=== PATIENT | male | born 1975 | race Hispanic/Latino ===

== ENCOUNTER 2021-07-21 07:43 | Day surgery (SDC) | payer OTHER ==
--- NOTE | 2021-07-21 08:52 | Anesthesia Consultation ---
Anesthesia Consult and Med Hx Date of service: 07/21/21 - Airway Anesthetic Teeth Evaluation: Poor, Chipped, Edentulous ROM Head & Neck: Adequate Mental/Hyoid Distance: Adequate Mallampati Class: Class I Intubation Access Assessment: Good - Pulmonary Exam CTA: Yes - Cardiac Exam Cardiac Exam: RRR - Pre-Operative Health Status ASA Pre-Surgery Classification: ASA3 Proposed Anesthetic Plan: MAC - Pulmonary Hx Smoking: Yes (RECENTLY STOPPED 06/14/2021) Hx Asthma: No Hx Respiratory Symptoms: No SOB: No COPD: No Home Oxygen Therapy: No Hx Pneumonia: No Hx Sleep Apnea: No - Cardiovascular System Hx Hypertension: Yes Hx Coronary Artery Disease: Yes Hx Heart Attack/AMI: Yes (2 STENTS) Hx Angina: No Hx Percutaneous Transluminal Coronary Angioplasty (PTCA): Yes Hx Cardia Arrhythmia: No Hx Pacemaker: No Hx Internal Defibrillator: No Hx Heart Murmur: No ("I don't remember") Hx Peripheral Vascular Disease: Yes - Central Nervous System Hx Neuromuscular Disorder: No Hx Seizures: No CVA: No Hx Back Pain: No Hx Psychiatric Problems: No - Gastrointestinal Hx Ulcer: No Hx Gastroesophageal Reflux Disease: No - Endocrine Hx Renal Disease: Yes (chronic kidney Disease) Hx End Stage Renal Disease: No Hx Cirrhosis: No Hx Liver Disease: No Hx Insulin Dependent Diabetes: Yes Hx Non-Insulin Dependent Diabetes: Yes Hx Thyroid Disease: No Hx Hypothyroidism: No Hx Hyperthyroidism: No - Hematic Hx Anemia: No Hx Sickle Cell Disease: No - Other Systems Hx Alcohol Use: No Hx Substance Use: Yes (MJ) Hx Cancer: Yes (skin cancer- nose) Hx Obesity: No
[2021-07-21 08:53] LABS: Hematocrit 27.6 % (35.5-45.6); Hemoglobin 9.2 gm/dl (11.8-15.2); Mean Corpuscular HGB Conc 33 % (32-34); Mean Corpuscular Volume 82 fl (84-94); Platelet Count 281 K/mm3 (140-440); Red Blood Count 3.37 M/mm3 (3.65-5.03); Red Cell Distribution Width 16.5 % (13.2-15.2)
--- NOTE | 2021-07-21 08:58 | Anesthesia Day of Surgery ---
Anesthesia Day of Surgery - Day of Surgery Patient Examined: Yes Patient H&P Reviewed: Yes Patient is NPO: Yes
[2021-07-21] MEDS ORDERED: SODIUM CHLORIDE 0.9% 1000 ML 1,000 ML IV SCH (09:00)
[2021-07-21 09:09] LABS: INR 2.38 (0.87-1.13)
[2021-07-21 09:10] LABS: Partial Thromboplastin Time 57.5 Sec. (24.2-36.6)
[2021-07-21 09:15] LABS: BUN/Creatinine Ratio 13; Blood Urea Nitrogen 8 mg/dL (9-20); Calcium 9.6 mg/dL (8.4-10.2); Hemolysis Index 3
== END 2021-07-21 09:45 | disposition home or self-care (01) ==
LOC: CATHLABREC 07:43
PROVIDERS: ATTEND Radiology Diagnostic Radiology
DX: E11.51 Type 2 diabetes mellitus with diabetic peripheral angiopathy without gangrene (principal); I12.9 Hypertensive chronic kidney disease with stage 1 through stage 4 chronic kidney disease, or unspecified chronic kidney disease; E11.22 Type 2 diabetes mellitus with diabetic chronic kidney disease; N18.9 Chronic kidney disease, unspecified; I25.10 Atherosclerotic heart disease of native coronary artery without angina pectoris; I25.2 Old myocardial infarction; Z85.828 Personal history of other malignant neoplasm of skin; F17.210 Nicotine dependence, cigarettes, uncomplicated; Z79.899 Other long term (current) drug therapy; Z95.5 Presence of coronary angioplasty implant and graft; Z98.890 Other specified postprocedural states; Z53.8 Procedure and treatment not carried out for other reasons
CPT/HCPCS: 36415; 80048; 85027; 85610; 85730

== ENCOUNTER 2021-08-18 09:42 | Inpatient (IN) | payer BC ==
[2021-08-18] MEDS ORDERED: SODIUM CHLORIDE 0.9% 1000 ML 1,000 ML IV SCH (10:30)
--- NOTE | 2021-08-18 10:35 | Anesthesia Day of Surgery ---
Anesthesia Day of Surgery - Day of Surgery Patient Examined: Yes Patient H&P Reviewed: Yes Patient is NPO: Yes
--- NOTE | 2021-08-18 10:40 | Anesthesia Consultation ---
Anesthesia Consult and Med Hx Date of service: 08/18/21 - Airway Anesthetic Teeth Evaluation: Poor, Chipped ROM Head & Neck: Adequate Mental/Hyoid Distance: Adequate Mallampati Class: Class II Intubation Access Assessment: Good - Pre-Operative Health Status ASA Pre-Surgery Classification: ASA3 Proposed Anesthetic Plan: General, MAC - Pulmonary Hx Smoking: Yes (Quit) Hx Respiratory Symptoms: No Hx Sleep Apnea: No - Cardiovascular System Hx Hypertension: Yes Hx Coronary Artery Disease: Yes (Stent) Hx Heart Attack/AMI: Yes Hx Peripheral Vascular Disease: Yes - Gastrointestinal Hx Gastroesophageal Reflux Disease: Yes (Occasional) - Endocrine Hx Liver Disease: Yes (Hep C-treated) Hx Insulin Dependent Diabetes: Yes Hx Non-Insulin Dependent Diabetes: Yes - Other Systems Hx Obesity: No
[2021-08-18 11:39] LABS: Hemoglobin 9.4 gm/dl (11.8-15.2); Mean Corpuscular HGB Conc 31 % (32-34); Mean Corpuscular Volume 77 fl (84-94); Platelet Count 281 K/mm3 (140-440); Red Blood Count 4.03 M/mm3 (3.65-5.03); Red Cell Distribution Width 17.8 % (13.2-15.2)
[2021-08-18 11:50] LABS: Partial Thromboplastin Time 31.4 Sec. (24.2-36.6)
[2021-08-18 11:53] LABS: INR 0.98 (0.87-1.13)
[2021-08-18 11:54] LABS: Blood Urea Nitrogen 4 mg/dL (9-20); Calcium 9.4 mg/dL (8.4-10.2); Hemolysis Index 10
[2021-08-18 11:55] LABS: BUN/Creatinine Ratio 7
[2021-08-18] MEDS ORDERED: LIDOCAINE MPF (2%) 20 MG/1 ML VIAL 5 ML ONE (12:03)
[2021-08-18] MEDS ORDERED: fentaNYL 100 MCG/2 ML INJ ONE (12:04)
[2021-08-18] MEDS ORDERED: MIDAZOLAM 2 MG/2 ML INJ ONE (12:04)
[2021-08-18] MEDS ORDERED: KETAMINE/STERILE WATER 50 MG/ML SYRINGE ONE (12:04)
[2021-08-18] MEDS ORDERED: ePHEDrine SULFATE 50 MG/1 ML INJ ONE ×2 (12:06)
[2021-08-18] MEDS ORDERED: HEPARIN 10,000 UNITS/10 ML VIAL ONE (12:49)
--- NOTE | 2021-08-18 12:49 | Consultation ---
History of Present Illness - Reason for Consult Consult date: 08/18/21 LLE gangrene Requesting physician: JADON ORDAZ - History of Present Illness 46-year-old male with multiple medical issues with H&P included on chart who had left lower extremity acute limb ischemia after being evaluated by [place] and was then brought to [facility] where he underwent thrombolysis, angioplasty, and revascularization of the left lower extremity and had fasciotomies performed. Unfortunately despite aggressive revascularization, patient had rethrombosis of his vessels and given his underlying issues, request below-knee amputation. Patient will require revascularization and subsequently below-knee amputation. Past History Past Medical History: acute AR, CAD, hepatitis, hypertension, hyperlipidemia, other (Hypercoagulable state) Past Surgical History: Other (Multiple endovascular procedures for previous hypercoagulable state) Social history: , smoking Family history: no significant family history Medications and Allergies Allergies Allergy/AdvReac Type Severity Reaction Status Date / Time No Known Allergies Allergy Unverified 08/18/21 10:12 Home Medications Medication Instructions Recorded Confirmed Last Taken Type ALPRAZolam [Xanax TAB] 1 mg PO TID PRN 08/18/21 08/18/21 08/17/21 History 3 tabs AtorvaSTATin [Lipitor] 20 mg PO QHS 08/18/21 08/18/21 Unknown History Gabapentin 300 mg PO DAILY 08/18/21 08/18/21 08/17/21 History 1 TAB Oxycodone HCl/Acetaminophen 1 each PO TID 08/18/21 08/18/21 Unknown History [Oxycodone-Acetaminophen 10-325] Warfarin [Coumadin] 2.5 mg PO 4XW 08/18/21 08/18/21 08/10/21 History 3 tabs Warfarin [Coumadin] 5 mg PO 3XW 08/18/21 08/18/21 08/10/21 History 3 tabs cilostazoL [Pletal] 100 mg PO BID 08/18/21 08/18/21 Unknown History lisinopriL [Lisinopril] 10 mg PO DAILY 08/18/21 08/18/21 08/17/21 History 10 mg Active Meds: Active Medications Sodium Chloride (Nacl 0.9% 1000 Ml) 1,000 mls @ 25 mls/hr IV DIRECT KRISTIE Review of Systems All systems: negative (see HPI) Exam - Constitutional Vitals: Temp Pulse Resp BP Pulse Ox 98.4 F 73 16 114/63 98 08/18/21 11:26 08/18/21 11:26 08/18/21 11:26 08/18/21 11:26 08/18/21 11:26 General appearance: Present: severe distress (Left lower extremity pain) - EENT Eyes: Present: EOM intact ENT: hearing intact - Neck Neck: Present: supple - Respiratory Respiratory effort: normal - Extremities Extremities: abnormal (Gangrene of the mid and distal anterolateral exposed fasciotomy and gangrene of the left first digit with cellulitic changes of the foot) Peripheral Pulses: abnormal (Nonpalpable left pedal pulses) - Abdominal General gastrointestinal: Present: soft - Psychiatric Psychiatric: appropriate mood/affect, cooperative Results - Labs CBC & Chem 7: 08/18/21 11:17 08/18/21 10:17 Labs: Abnormal lab results 08/18/21 08/18/21 Range/Units 10:17 11:17 Hgb 9.4 L (11.8-15.2) gm/dl Hct 31.0 L (35.5-45.6) % MCV 77 L (84-94) fl MCH 23 L (28-32) pg MCHC 31 L (32-34) % RDW 17.8 H (13.2-15.2) % Sodium 131 L (137-145) mmol/L Chloride 93.3 L (98-107) mmol/L BUN 4 L (9-20) mg/dL Creatinine 0.6 L (0.8-1.3) mg/dL Glucose 148 H (75-100) mg/dL Assessment and Plan 46-year-old male with critical limb ischemia and peripheral vascular disease of the left lower extremity with gangrene. Patient has attempted limb salvage with endovascular revascularization, thrombolysis, and fasciotomies, but still fails to improve. He now has an infection of his left first digit at the area of gangrene, and has eschar of the left mid and distal calf musculature. The left lower extremity is nonsalvageable and requires amputation. Patient wants left lower extremity below-knee amputation. Patient had endovascular revascularization today in order to optimize flow for below-knee amputation. Risks, benefits, alternatives discussed, patient agrees with left lower extremity below-knee amputation. Started on heparin drip, Plavix, on cilostazol, with Protonix for GI prophylaxis. Hold heparin on-call to the OR tomorrow. Patient has history of significant anxiety and has been on chronic Xanax for many years.
[2021-08-18] MEDS ORDERED: LIDOCAINE (2%) 20 MG/1 ML VIAL 20 ML MDV INFILTRATI ONE (12:50)
[2021-08-18] MEDS ORDERED: HEPARIN IR ONE (13:00)
[2021-08-18] MEDS ORDERED: SODIUM CHLORIDE 0.9% IR ONE (13:00)
[2021-08-18] MEDS ORDERED: SODIUM CHLORIDE 0.9% 1000 ML 1,000 ML ONE (13:02)
[2021-08-18] MEDS ORDERED: ceFAZolin/Water 2 GM/20 ML 2 GM/20 ML SYRINGE IV ONE (13:28)
[2021-08-18] MEDS ORDERED: NALOXONE 0.4 MG/1 ML INJ IV PRN (14:54)
[2021-08-18] MEDS ORDERED: ALBUTEROL 2.5 MG/3 ML NEBU IH PRN (14:54)
[2021-08-18] MEDS ORDERED: HEPARIN 10,000 UNITS/10 ML VIAL IV PRN (14:54)
[2021-08-18] MEDS ORDERED: ONDANSETRON 4 MG/2 ML INJ IV PRN (14:54)
[2021-08-18] MEDS ORDERED: ACETAMINOPHEN 325 MG TAB PO PRN (14:54)
--- NOTE | 2021-08-18 14:59 | Short Stay Summary ---
Short Stay Documentation Date of service: 08/18/21 Narrative H&P: 46-year-old male with multiple medical issues with H&P included on chart who had left lower extremity acute limb ischemia after being evaluated by [place] and was then brought to [facility] where he underwent thrombolysis, angioplasty, and revascularization of the left lower extremity and had fasciotomies performed. Unfortunately despite aggressive revascularization, patient had rethrombosis of his vessels and given his underlying issues, request below-knee amputation. Patient will require revascularization and subsequently below-knee amputation. - History Principal diagnosis: Peripheral vascular disease with gangrene of the left lower extremity H&P: obtained from office - Allergies and Medications Current Medications: Allergies No Known Allergies Allergy (Unverified 08/18/21 10:12) Home Medications Medication Instructions Recorded Confirmed Last Taken Type ALPRAZolam [Xanax TAB] 1 mg PO TID PRN 08/18/21 08/18/21 08/17/21 History 3 tabs AtorvaSTATin [Lipitor] 20 mg PO QHS 08/18/21 08/18/21 Unknown History Gabapentin 300 mg PO DAILY 08/18/21 08/18/21 08/17/21 History 1 TAB Oxycodone HCl/Acetaminophen 1 each PO TID 08/18/21 08/18/21 Unknown History [Oxycodone-Acetaminophen 10-325] Warfarin [Coumadin] 2.5 mg PO 4XW 08/18/21 08/18/21 08/10/21 History 3 tabs Warfarin [Coumadin] 5 mg PO 3XW 08/18/21 08/18/21 08/10/21 History 3 tabs cilostazoL [Pletal] 100 mg PO BID 08/18/21 08/18/21 Unknown History lisinopriL [Lisinopril] 10 mg PO DAILY 08/18/21 08/18/21 08/17/21 History 10 mg Active Medications Sodium Chloride (Nacl 0.9% 1000 Ml) 1,000 mls @ 25 mls/hr IV DIRECT KRISTIE - Physical exam General appearance: severe distress (Left lower extremity severe pain) Lungs: Normal air movement Gastrointestinal: normal Extremities: abnormal (Large amounts of gangrene of the distal left anterior lateral compartment and left first digit amputation site with cellulitis of the foot) - Hospital course Hospital course: Patient will require admission to the hospital. Dr. Edmonds, hospitalist notified who will be admitting the patient. - Disposition Condition at discharge: Stable Disposition: 09 ADMITTED INPATIENT - Discharge Diagnoses (1) Gangrene of left lower extremity concurrent with and due to atherosclerosis of bypass graft Status: Acute (2) Critical limb ischemia of left lower extremity with gangrene Status: Acute Short Stay Discharge Plan Follow up with: SMITH RANGEL MD [Primary Care Provider] - 7 Days
--- NOTE | 2021-08-18 14:59 | Operative Report ---
Operative Report Operative Report: EXAM: 1. Ultrasound-guided access of the right common femoral artery. 2. Angiography of the right lower extremity (clinical change). 3. Selection of the abdominal aorta with angiography (clinical change) . 4. Selection of the left external iliac artery, common femoral artery, superficial femoral artery, and popliteal artery of the left lower extremity with angiography (clinical change) 5. Angioplasty of the left proximal and mid superficial femoral artery with a 5 mm x 120 mm angioplasty balloon, 5 mm x 150 mm iNPACT balloon and 6 mm x 120 mm angioplasty balloon 6. Closure of the right common femoral artery with a 6 [place] ProGlide DATE: 08/18/2021 CALL CENTER PROFESSIONAL: REYNA PEÑALOZA MD INDICATION: Critical limb ischemia of the left lower extremity with left foot infection, left MEDICATIONS: Please see nursing report for full details. ANESTHESIA: MAC DEVICES: 5 mm x 120 mm angioplasty balloon 5 mm x 150 mm iNPACT balloon 6 mm x 120 mm angioplasty balloon CONTRAST: Please see catheter report for full details PROCEDURE: The risks, benefits, and alternatives were discussed with the patient. Written informed consent was obtained. Preprocedurally, patient has decided upon below-knee amputation. Procedures performed to optimize blood flow for below-knee amputation. Ultrasound was used to evaluate the right common femoral artery which was patent. Under direct ultrasound guidance, the right common femoral artery was accessed with a 21-gauge micropuncture needle. 0.018 inch wire was passed into the aorta. Needle was exchanged for transitional dilator. Wire was exchanged for a 0.035 inch wire. Transitional dilator was exchanged for 5 [place] sheath. Digital subtraction angiography was performed demonstrating an appropriate puncture, above the bifurcation and below the inferior epigastric artery. Digital subtraction angiography demonstrated patency of the right external iliac artery, right common femoral artery, right proximal superficial femoral artery, and right profunda femoral artery. The abdominal aorta was selected and digital subtraction angiography was perfo rmed. The left external iliac artery, common femoral artery, superficial femoral artery and popliteal artery were selected and digital subtraction angiography was performed. Digital subtraction angiography demonstrated patency of the infrarenal abdominal aorta, bilateral common iliac arteries, bilateral external iliac arteries, and bilateral internal iliac arteries. The left common femoral artery was patent. The left profunda femoral artery was patent. The left proximal to mid superficial femoral artery had a diffuse 30 to 40% stenosis with a focal 60% stenosis in the mid superficial femoral artery. The distal superficial femoral artery was patent. The popliteal artery was patent with some's mild ectasia of the [id number] popliteal artery. There is severe infrapopliteal arterial disease. The tibioperoneal trunk was patent. The proximal to mid posterior tibial artery is patent. The proximal peroneal artery has diffuse 50% stenosis. The first 5 cm of the anterior tibial artery are occluded and there is reconstitution of intermittent portions of the proximal and midportion of the vessel. There is minimal flow to the foot with minimal reconstitution of the lateral plantar and medial plantar artery After reviewing the diagnostic angiogram, I decided the patient required intervention to optimize flow for a below-knee amputation. Patient was heparinized. Sheath was exchanged for 6 [place] 45 cm [facility] destination positioned in the left common femoral artery. Angioplasty was performed of the left proximal and mid superficial femoral artery with a 5 mm x 120 mm angioplasty balloon and then with a 5 mm x 150 mm iNPACT balloon. Digital subtraction angiography demonstrated 2 areas of dissection which were partially flow-limiting. 6 mm x 120 mm angioplasty b alloon was used at low pressure to reapposed the flaps in the proximal and midportion of the superficial femoral artery for 5 minutes at each inflation. Digital subtraction angiography was performed demonstrating less than 10% residual stenosis of the proximal and mid superficial femoral artery and complete resolution of the dissection. The rest of the runoff was unchanged. All wires, catheters, and sheaths were retracted to the right external iliac artery and the site was closed with a prostyle device. Pressure dressing applied. Patient tolerated the procedure well. No immediate postprocedural complications. FINDINGS: Please see procedure note above IMPRESSION: Successful angioplasty of the left superficial femoral artery.
[2021-08-18] MEDS ORDERED: CLOPIDOGREL 300 MG TAB PO ONE (15:08)
[2021-08-18] MEDS ORDERED: LORazepam 2 MG/ML VIAL ONE (15:30)
[2021-08-18] MEDS ORDERED: LORazepam 2 MG/ML VIAL IV NR (15:38)
--- NOTE | 2021-08-18 16:21 | Event Note ---
Date: 08/18/21 Patient had angiography today with endovascular revascularization of the left lower extremity. Tomorrow he will end up having a below-knee amputation. Afterwards, he will need to be sent to subacute rehab for rehabilitation for his left below-knee amputation and be converted back to warfarin from heparin.
--- NOTE | 2021-08-18 16:22 | XRay Report ---
CHEST 1 VIEW 08/18/2021 3:21 PM INDICATION / CLINICAL INFORMATION: preop. History of hypertension, diabetes and gangrene. COMPARISON: 2 views of the chest from 06/20/2021. FINDINGS: SUPPORT DEVICES: None. HEART / MEDIASTINUM: No significant abnormality. LUNGS / PLEURA: No significant pulmonary abnormality. No significant pleural effusion. No pneumothora x. ADDITIONAL FINDINGS: No significant additional findings. IMPRESSION: 1. No acute abnormality of the chest. Signer Name: Mauro Lai MD Signed: 08/18/2021 4:17 PM Workstation Name: [id number]
[2021-08-18] MEDS: HEPARIN/ 0.45% NACL DRIP 25,000 UNIT/500 ML BAG IV SCH (16:35)
--- NOTE | 2021-08-18 16:58 | Post Anesthesia Evaluation ---
- Post Anesthesia Evaluation Patient Participated: Yes Airway Patent: Yes Stable Respiratory Function: Yes Nausea/Vomiting: No Temp > 96.8F: Yes Pain Manageable: Yes Adequeate Hydration: Yes Anesthesia Complications: No Block Receding Appropriately: Not Applicable Patient on Ventilator: No
[2021-08-18 21:01] LABS: Hematocrit 31.8 % (35.5-45.6); Hemoglobin 9.6 gm/dl (11.8-15.2)
[2021-08-18 21:06] LABS: Blood Urea Nitrogen 4 mg/dL (9-20); Calcium 8.9 mg/dL (8.4-10.2); Hemolysis Index 0
[2021-08-18 21:12] LABS: INR 1.04 (0.87-1.13)
[2021-08-18 21:13] LABS: BUN/Creatinine Ratio 6
[2021-08-18] MEDS: CILOSTAZOL 100 MG TAB PO SCH ×2 (22:17→22:52)
[2021-08-18] MEDS: DOCUSATE SODIUM 100 MG CAP PO SCH ×2 (22:17→22:53)
[2021-08-18] MEDS: ALPRAZolam 1 MG TAB PO PRN (22:52)
[2021-08-18] MEDS: HYDROcodone/ACETAMINOPHEN 5-325 MG TAB PO PRN (22:53)
--- NOTE | 2021-08-19 00:24 | Consultation ---
History of Present Illness - Reason for Consult Consult date: 08/18/21 Medical management Requesting physician: REYNA PEÑALOZA - History of Present Illness 46-year-old male with multiple medical issues with H&P included on chart who had left lower extremity acute limb ischemia after being evaluated by [facility] and was then brought to [facility] where he underwent thrombolysis, angioplasty, and revascularization of the left lower extremity and had fasciotomies performed. Unfortunately despite aggressive revascularization, patient had rethrombosis of his vessels and given his underlying issues, request below-knee amputation. Patient will require revascularization and subsequently below-knee amputation. Past History Past Medical History: acute [place], CAD, hepatitis, hypertension, hyperlipidemia, other (Hypercoagulable state) Past Surgical History: Other (Multiple endovascular procedures for previous hypercoagulable state) Social history: , smoking Family history: no significant family history Review of Systems All system Constitutional no weight loss or weight gain no fever or chills HEENT no sore throat no post nasal drip no diplopia Neck no neck stiffness no lymph gland enlargement Chest and lungs no shortness of breath cough or wheezing CVS no chest pain no diaphoresis no palpitations GI no nausea no vomiting no diarrhea Genitourinary system no dysuria no flank pain Musculoskeletal system left lower extremity acute ischemia [employer] no syncope no seizures Skin no rash no itching Psychiatric no depression no homicidal or suicidal tendencies Hematologic no lymphedema or bruising Endocrine no polydipsia no polyuria no cold intolerance no heat intolerance Past History Past Medical History: acute [place], CAD, hepatitis, hypertension, hyperlipidemia, other (Hypercoagulable state) Past Surgical History: Other (Multiple endovascular procedures for previous hypercoagulable state) Social history: , smoking Family history: no significant family history Medications and Allergies Allergies Allergy/AdvReac Type Severity Reaction Status Date / Time No Known Allergies Allergy Unverified 08/18/21 10:12 Home Medications Medication Instructions Recorded Confirmed Last Taken Type ALPRAZolam [Xanax TAB] 1 mg PO TID PRN 08/18/21 08/18/21 08/17/21 History 3 tabs AtorvaSTATin [Lipitor] 20 mg PO QHS 08/18/21 08/18/21 Unknown History Gabapentin 300 mg PO DAILY 08/18/21 08/18/21 08/17/21 History 1 TAB Oxycodone HCl/Acetaminophen 1 each PO TID 08/18/21 08/18/21 Unknown History [Oxycodone-Acetaminophen 10-325] Warfarin [Coumadin] 2.5 mg PO 4XW 08/18/21 08/18/21 08/10/21 History 3 tabs Warfarin [Coumadin] 5 mg PO 3XW 08/18/21 08/18/21 08/10/21 History 3 tabs cilostazoL [Pletal] 100 mg PO BID 08/18/21 08/18/21 Unknown History lisinopriL [Lisinopril] 10 mg PO DAILY 08/18/21 08/18/21 08/17/21 History 10 mg Active Meds: Active Medications Acetaminophen (Acetaminophen 325 Mg Tab) 650 mg PO Q4H PRN PRN Reason: Pain MILD(1-3)/Fever >100.5/RICK Hydrocodone Bitart/Acetaminophen (Hydrocodone/Acetaminophen 5-325 Mg Tab) 1 each PO Q6H PRN PRN Reason: Pain, Mild (1-3) Last Admin: 08/18/21 22:53 Dose: 1 each Albuterol (Albuterol 2.5 Mg/3 Ml Nebu) 2.5 mg IH Q4HRT PRN PRN Reason: Shortness Of Breath Alprazolam (Alprazolam 1 Mg Tab) 1 mg PO TID PRN PRN Reason: Anxiety Last Admin: 08/18/21 22:52 Dose: 1 mg Atorvastatin Calcium (Atorvastatin 20 Mg Tab) 20 mg PO QHS [facility] Last Admin: 08/18/21 22:52 Dose: 20 mg Bisacodyl (Bisacodyl 10 Mg Rect Supp) 10 mg [place] QDAY PRN PRN Reason: Constipation unrelieved by MOM Cilostazol (Cilostazol 100 Mg Tab) 100 mg PO BID [facility] Last Admin: 08/18/21 22:52 Dose: 100 mg Clopidogrel Bisulfate (Clopidogrel 75 Mg Tab) 75 mg PO QDAY [facility] Docusate Sodium (Docusate Sodium 100 Mg Cap) 100 mg PO BID [facility] Last Admin: 08/18/21 22:53 Dose: 100 mg Gabapentin (Gabapentin 300 Mg Cap) 300 mg PO DAILY [facility] Heparin Sodium (Porcine) (Heparin 10,000 Units/10 Ml Vial) 3,200 unit 40 unit/kg (3200 unit) IV Q6H PRN PRN Reason: Anti-Xa Assay<0.1 units/ml Hydromorphone HCl (Hydromorphone 1 Mg/1 Ml Inj) 1 mg IV Q2H PRN PRN Reason: Pain , Severe (7-10) Sodium Chloride (Nacl 0.9% 1000 Ml) 1,000 mls @ 100 mls/hr IV DIRECT KRISTIE Heparin Sodium/Sodium Chloride (Heparin/ 0.45% Nacl-25,000 Unit/500 Ml) 25,000 unit in 500 mls @ 20 mls/hr IV TITRATE KRISTIE; Protocol Last Admin: 08/18/21 16:35 Dose: 1,000 units/hr, 20 mls/hr Lisinopril (Lisinopril 10 Mg Tab) 10 mg PO DAILY KRISTIE Naloxone HCl (Naloxone 0.4 Mg/1 Ml Inj) 0.1 mg IV Q2MIN PRN PRN Reason: Res Rate </= 8 or 02 SAT < 92% Ondansetron HCl (Ondansetron 4 Mg/2 Ml Inj) 4 mg IV Q8H PRN PRN Reason: Nausea And Vomiting Oxycodone/Acetaminophen (Oxycodone /Acetaminophen 5-325mg Tab) 2 tab PO Q4H PRN PRN Reason: Pain, Moderate (4-6) Pantoprazole Sodium (Pantoprazole 40 Mg Tab) 40 mg PO QDAC KRISTIE Review of Systems All systems: negative Exam - Constitutional Vitals: Temp Pulse Resp BP Pulse Ox 99.7 F H 103 H 18 177/92 97 08/18/21 20:10 08/18/21 20:10 08/18/21 20:10 08/18/21 20:10 08/18/21 20:10 General appearance: Present: no acute distress, well-nourished - EENT Eyes: Present: PERRL ENT: hearing intact, clear oral mucosa - Neck Neck: Present: supple, normal ROM - Respiratory Respiratory effort: normal Respiratory: bilateral: CTA - Cardiovascular Heart Sounds: Present: S1 & S2. Absent: rub, click - Extremities Extremities: No edema, abnormal (Left lower extremity ischemic changes in the left foot) Extremity abnormal: black, other (Same as above) Peripheral Pulses: within normal limits - Abdominal General gastrointestinal: Present: soft, non-tender, non-distended, normal bowel sounds Male genitourinary: Present: normal - Integumentary Integumentary: Present: clear, warm, dry - Musculoskeletal Musculoskeletal: gait normal, strength equal bilaterally - Psychiatric Psychiatric: appropriate mood/affect, intact judgment & insight - Neurologic Neurologic: CNII-XII intact, moves all extremities Results - Labs CBC & Chem 7: 08/19/21 04:22 08/19/21 04:22 Labs: Abnormal lab results 08/18/21 08/18/21 08/18/21 Range/Units 10:17 11:17 19:48 Hgb 9.4 L 9.6 L (11.8-15.2) gm/dl Hct 31.0 L 31.8 L (35.5-45.6) % MCV 77 L (84-94) fl MCH 23 L (28-32) pg MCHC 31 L (32-34) % RDW 17.8 H (13.2-15.2) % Sodium 131 L (137-145) mmol/L Chloride 93.3 L (98-107) mmol/L BUN 4 L (9-20) mg/dL Creatinine 0.6 L (0.8-1.3) mg/dL Glucose 148 H (75-100) mg/dL 08/18/21 Range/Units 19:48 Hgb (11.8-15.2) gm/dl Hct (35.5-45.6) % MCV (84-94) fl MCH (28-32) pg MCHC (32-34) % RDW (13.2-15.2) % Sodium (137-145) mmol/L Chloride (98-107) mmol/L BUN 4 L (9-20) mg/dL Creatinine 0.7 L (0.8-1.3) mg/dL Glucose 111 H (75-100) mg/dL Short CBC 08/18/21 08/18/21 Range/Units 11:17 19:48 WBC 7.5 (4.5-11.0) K/mm3 Hgb 9.4 L 9.6 L (11.8-15.2) gm/dl Hct 31.0 L 31.8 L (35.5-45.6) % Plt Count 281 232 (140-440) K/mm3 BMP 08/18/21 08/18/21 10:17 19:48 Sodium 131 L 137 Potassium 3.8 3.7 Chloride 93.3 L 99.0 Carbon Dioxide 25 25 BUN 4 L 4 L Creatinine 0.6 L 0.7 L Glucose 148 H 111 H Calcium 9.4 8.9 Assessment and Plan - Patient Problems (1) Critical limb ischemia of left lower extremity with gangrene Current Visit: Yes Status: Acute Plan to address problem: Defer to vascular surgery/interventional radiology (2) PAD (peripheral artery disease) Current Visit: Yes Status: Chronic Plan to address problem: Continue cilostazol (3) HLD (hyperlipidemia) Current Visit: Yes Status: Chronic Qualifiers: Hyperlipidemia type: mixed hyperlipidemia Qualified Code(s): E78.2 - Mixed hyperlipidemia Plan to address problem: Continue statins (4) Anemia Current Visit: Yes Status: Chronic Qualifiers: Anemia type: unspecified type Qualified Code(s): D64.9 - Anemia, unspecified Plan to address problem: Anemia work-up (5) Anticoagulation goal of INR 2 to 3 Current Visit: Yes Status: Acute Plan to address problem: Anticoagulation adequate (6) Peripheral neuropathy Current Visit: Yes Status: Chronic Plan to address problem: Continue gabapentin (7) Generalized anxiety disorder Current Visit: Yes Status: Acute Plan to address problem: Continue Xanax as needed (8) DVT prophylaxis Current Visit: Yes Status: Acute Plan to address problem: On anticoagulation GI prophylaxis (9) Advance care planning Current Visit: Yes Status: Acute Plan to address problem: Disease education conducted, care plan discussed, diagnosis discussed, prognosis discussed. Patient is full code. Patient acknowledges understanding and agreement with care plan. +30 minutes.
[2021-08-19] MEDS: HYDROmorphone 1 MG/1 ML INJ IV PRN ×6 (04:25→18:37)
[2021-08-19] MEDS ORDERED: HEPARIN 10,000 UNITS/10 ML VIAL IV ONE (04:43)
[2021-08-19 06:16] LABS: Basophils % (Auto) 0.5 % (0.0-1.8); Eosinophils # (Auto) 0.1 K/mm3 (0.0-0.4); Eosinophils % (Auto) 0.8 % (0.0-4.3); Hematocrit 30.4 % (35.5-45.6); Hemoglobin 9.6 gm/dl (11.8-15.2); Lymphocytes # (Auto) 1.8 K/mm3 (1.2-5.4); Mean Corpuscular HGB Conc 31 % (32-34); Mean Corpuscular Volume 77 fl (84-94); Monocytes # (Auto) 0.7 K/mm3 (0.0-0.8); Monocytes % (Auto) 9.9 % (0.0-7.3); Platelet Count 274 K/mm3 (140-440); Red Blood Count 3.95 M/mm3 (3.65-5.03); Red Cell Distribution Width 18.2 % (13.2-15.2)
[2021-08-19 06:31] LABS: Blood Urea Nitrogen 5 mg/dL (9-20); Hemolysis Index 1
[2021-08-19 06:35] LABS: BUN/Creatinine Ratio 8
[2021-08-19] MEDS: PANTOPRAZOLE 40 MG TAB PO SCH (08:05)
--- NOTE | 2021-08-19 08:50 | Electrocardiograph Report ---
[facility] Test Date: 2021-08-18 Test Time: 15:37:11 Pat Name: ORLIN MATAMOROS Department: Room: A452 Gender: M Spring Coiler: HERBERT : 1975 Requested By: REYNA PEÑALOZA Order Number: [id number] Reading MD: Jamie Richardson Measurements Intervals [place] Rate: 91 P: 63 NV: 139 QRS: -16 QRSD: 102 T: 44 QT: 385 QTc: 474 Interpretive Statements Sinus rhythm nonspecific st-t No previous ECG available for comparison Electronically Signed On 08-19-2021 8:50:14 EST by Jamie Richardson
--- NOTE | 2021-08-19 09:58 | Progress Note ---
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 Current Visit: Yes Status: Acute Defer to vascular surgery/interventional radiology -- PAD (peripheral artery disease) Current Visit: Yes Status: Chronic Continue cilostazol -- HLD (hyperlipidemia) Current Visit: Yes Status: Chronic Continue statins -- Anemia Current Visit: Yes Status: Chronic Anemia work-up -- Anticoagulation goal of INR 2 to 3 Current Visit: Yes Status: Acute Anticoagulation adequate -- Peripheral neuropathy Current Visit: Yes Status: Chronic Continue gabapentin --Generalized anxiety disorder Current Visit: Yes Status: Acute Continue Xanax as needed --DVT prophylaxis Current Visit: Yes Status: Acute On anticoagulation GI prophylaxis --Advance care planning Current Visit: Yes Status: Acute Disease education conducted, care plan discussed, diagnosis discussed, prognosis discussed. Patient is full code. Patient acknowledges understanding and agreement with care plan. +30 minutes. We will closely monitor patient and adjust management as needed Plan of care reviewed with the patient and his nurse History Interval history: I have seen and examined the patient at the bedside Patient's chart and medications reviewed Patient complains of some pain at the surgical site Vital signs noted Hospitalist Physical - Constitutional Vitals: Temp Pulse Resp BP Pulse Ox 100.6 F H 105 H 18 121/68 97 08/19/21 08:46 08/19/21 08:46 08/19/21 08:46 08/19/21 08:46 08/19/21 08:46 General appearance: Present: no acute distress, well-nourished - EENT Eyes: Present: PERRL, EOM intact - Neck Neck: Present: supple, normal ROM - Respiratory Respiratory effort: normal Respiratory: bilateral: diminished, negative: rales, rhonchi, wheezing - Cardiovascular Rhythm: regular Heart Sounds: Present: S1 & S2 - Extremities Extremities: abnormal (Surgical dressing in place) - Abdominal General gastrointestinal: soft, non-tender, non-distended, normal bowel sounds - Integumentary Integumentary: Present: clear, warm - Psychiatric Psychiatric: appropriate mood/affect, cooperative - Neurologic Neurologic: moves all extremities Results - Labs CBC & Chem 7: 08/19/21 04:22 08/19/21 04:22 Labs: Laboratory Last Values WBC 7.3 K/mm3 (4.5-11.0) 08/19/21 04:22 RBC 3.95 M/mm3 (3.65-5.03) 08/19/21 04:22 Hgb 9.6 gm/dl (11.8-15.2) L 08/19/21 04:22 Hct 30.4 % (35.5-45.6) L 08/19/21 04:22 MCV 77 fl (84-94) L 08/19/21 04:22 MCH 24 pg (28-32) L 08/19/21 04:22 MCHC 31 % (32-34) L 08/19/21 04:22 RDW 18.2 % (13.2-15.2) H 08/19/21 04:22 Plt Count 274 K/mm3 (140-440) 08/19/21 04:22 Lymph % (Auto) 25.0 % (13.4-35.0) 08/19/21 04:22 [place] % (Auto) 9.9 % (0.0-7.3) H 08/19/21 04:22 Eos % (Auto) 0.8 % (0.0-4.3) 08/19/21 04:22 Baso % (Auto) 0.5 % (0.0-1.8) 08/19/21 04:22 Lymph # (Auto) 1.8 K/mm3 (1.2-5.4) 08/19/21 04:22 [place] # (Auto) 0.7 K/mm3 (0.0-0.8) 08/19/21 04:22 Eos # (Auto) 0.1 K/mm3 (0.0-0.4) 08/19/21 04:22 Baso # (Auto) 0.0 K/mm3 (0.0-0.1) 08/19/21 04:22 Seg Neutrophils % 63.8 % (40.0-70.0) 08/19/21 04:22 Seg Neutrophils # 4.6 K/mm3 (1.8-7.7) 08/19/21 04:22 PT 14.7 Sec. (12.2-14.9) 08/18/21 19:48 INR 1.04 (0.87-1.13) 08/18/21 19:48 APTT 31.4 Sec. (24.2-36.6) 08/18/21 10:17 Heparin Anti-Xa Level < 0.10 U.I./ml (0.3-0.7) L 08/19/21 00:02 Sodium 137 mmol/L (137-145) 08/19/21 04:22 Potassium 4.1 mmol/L (3.6-5.0) 08/19/21 04:22 Chloride 98.0 mmol/L (98-107) 08/19/21 04:22 Carbon Dioxide 26 mmol/L (22-30) 08/19/21 04:22 Anion Gap 17 mmol/L 08/19/21 04:22 BUN 5 mg/dL (9-20) L 08/19/21 04:22 Creatinine 0.6 mg/dL (0.8-1.3) L 08/19/21 04:22 Estimated GFR > 60 ml/min 08/19/21 04:22 BUN/Creatinine Ratio 8 % 08/19/21 04:22 Glucose 146 mg/dL (75-100) H 08/19/21 04:22 Calcium 9.0 mg/dL (8.4-10.2) 08/19/21 04:22 Microbiology: Microbiology 08/18/21 19:48 Peripheral/Venous Blood Culture - Preliminary Culture in Progress 08/18/21 19:48 Peripheral/Venous Blood Culture - Preliminary Culture in Progress Gutierrez/IV: Voiding Method Urinal Active Medications - Current Medications Current Medications: Generic Name Dose Route Start Last Admin Trade Name Freq PRN Reason Stop Dose Admin Acetaminophen 650 mg 08/18/21 14:54 Acetaminophen 325 Mg Tab PO Q4H PRN Pain MILD(1-3)/Fever >100.5/RICK Hydrocodone Bitart/Acetaminophen 1 each 08/18/21 14:54 08/18/21 22:53 Hydrocodone/Acetaminophen 5-325 Mg Tab PO 1 each Q6H PRN Administration Pain, Mild (1-3) Albuterol 2.5 mg 08/18/21 14:54 Albuterol 2.5 Mg/3 Ml Nebu IH Q4HRT PRN Shortness Of Breath Alprazolam 1 mg 08/18/21 15:07 08/18/21 22:52 Alprazolam 1 Mg Tab PO 1 mg TID PRN Administration Anxiety Atorvastatin Calcium 20 mg 08/18/21 22:00 08/18/21 22:52 Atorvastatin 20 Mg Tab PO 20 mg QHS [facility] Administration Bisacodyl 10 mg 08/18/21 14:54 Bisacodyl 10 Mg Rect Supp AR QDAY PRN Constipation unrelieved by MOM Cilostazol 100 mg 08/18/21 16:00 08/18/21 22:52 Cilostazol 100 Mg Tab PO 100 mg BID KRISTIE Administration Clopidogrel Bisulfate 75 mg 08/19/21 10:00 Clopidogrel 75 Mg Tab PO QDAY [facility] Docusate Sodium 100 mg 08/18/21 15:00 08/18/21 22:53 Docusate Sodium 100 Mg Cap PO 100 mg BID KRISTIE Administration Gabapentin 300 mg 08/18/21 16:00 Gabapentin 300 Mg Cap PO DAILY [facility] Heparin Sodium (Porcine) 3,200 unit 08/18/21 14:54 Heparin 10,000 Units/10 Ml Vial 40 unit/kg (3200 unit) IV Q6H PRN Anti-Xa Assay<0.1 units/ml Hydromorphone HCl 1 mg 08/18/21 14:54 08/19/21 08:04 Hydromorphone 1 Mg/1 Ml Inj IV 1 mg Q2H PRN Administration Pain , Severe (7-10) Sodium Chloride 1,000 mls @ 100 mls/hr 08/18/21 10:30 Nacl 0.9% 1000 Ml IV DIRECT [facility] Heparin Sodium/Sodium Chloride 25,000 unit in 500 mls @ 20 mls/hr 08/18/21 15:00 08/19/21 04:06 Heparin/ 0.45% Nacl-25,000 Unit/500 Ml IV 1,200 units/hr TITRATE [facility] 24 mls/hr Titration Protocol 1,000 UNITS/HR Lisinopril 10 mg 08/18/21 16:00 Lisinopril 10 Mg Tab PO DAILY [facility] Naloxone HCl 0.1 mg 08/18/21 14:54 Naloxone 0.4 Mg/1 Ml Inj IV Q2MIN PRN Res Rate </= 8 or 02 SAT < 92% Ondansetron HCl 4 mg 08/18/21 14:54 Ondansetron 4 Mg/2 Ml Inj IV Q8H PRN Nausea And Vomiting Oxycodone/Acetaminophen 2 tab 08/18/21 14:54 Oxycodone /Acetaminophen 5-325mg Tab PO Q4H PRN Pain, Moderate (4-6) Pantoprazole Sodium 40 mg 08/18/21 16:00 08/19/21 08:05 Pantoprazole 40 Mg Tab PO Not Given QDAC KRISTIE
[2021-08-19] MEDS: GABAPENTIN 300 MG CAP PO SCH (09:59)
[2021-08-19] MEDS: CILOSTAZOL 100 MG TAB PO SCH ×2 (09:59→21:19)
[2021-08-19] MEDS: DOCUSATE SODIUM 100 MG CAP PO SCH ×2 (09:59→21:19)
[2021-08-19] MEDS: ALPRAZolam 1 MG TAB PO PRN ×3 (09:59→21:20)
[2021-08-19] MEDS: CLOPIDOGREL 75 MG TAB PO SCH (09:59)
[2021-08-19] MEDS: LISINOPRIL 10 MG TAB PO SCH (10:00)
[2021-08-19] MEDS ORDERED: propofoL 200 MG/20 ML VIAL IV ONE (11:20)
[2021-08-19] MEDS ORDERED: LIDOCAINE MPF (2%) 20 MG/1 ML VIAL 5 ML ONE (11:20)
[2021-08-19] MEDS ORDERED: HYDROmorphone 1 MG/1 ML INJ ONE ×2 (11:20→12:40)
[2021-08-19] MEDS ORDERED: PHENYLEPHRINE/NS 1,000 MCG/10 ML SYRINGE (OR USE) IV ONE (12:24)
[2021-08-19] MEDS ORDERED: SODIUM CHLORIDE 0.9% 1000 ML 1,000 ML ONE (12:25)
--- NOTE | 2021-08-19 12:55 | Consultation ---
History of Present Illness - Reason for Consult Consult date: 08/19/21 - History of Present Illness 46-year-old man past medical history CAD, hepatitis, hypertension presented to the hospital with acute left lower extremity limb ischemia. He was initially evaluated by MRI and then brought to [facility] to undergo thrombolysis, angioplasty, revascularization of the left lower extremity. Fasciotomies were performed at that time. Despite aggressive treatment he had rethrombosis of the vessels, and as such we will have a below-knee amputation. Febrile to 100.6, tachycardic. White count 7.3. Normal renal function. Blood cultures no growth so far. Currently on no antibiotics. Imaging personally reviewed: Chest x-ray: No acute abnormality. Review of Systems: Bold if positive, otherwise negative General: fevers, chills, rigors HEENT: visual disturbance, diplopia, eye pain Respiratory: cough, sputum, hemoptysis, shortness of breath Cardiovascular: chest pain, syncope Gastrointestinal: nausea, vomiting, diarrhea, abdominal pain Genitourinary: dysuria, hematuria, flank pain Musculoskeletal: neck pain, back pain, joint pain, edema Neurologic: headaches, seizures Hematologic: easy bruising or bleeding Endocrine: night sweats, acute weight loss Skin: rash, jaundice, redness Psychiatric: suicidal, homicidal ideation Past History Past Medical History: acute [place], CAD, hepatitis, hypertension, hyperlipidemia, other (Hypercoagulable state) Past Surgical History: Other (Multiple endovascular procedures for previous hypercoagulable state) Social history: , smoking Family history: no significant family history Medications and Allergies Allergies Allergy/AdvReac Type Severity Reaction Status Date / Time No Known Allergies Allergy Verified 08/19/21 09:54 Home Medications Medication Instructions Recorded Confirmed Last Taken Type ALPRAZolam [Xanax TAB] 1 mg PO TID PRN 08/18/21 08/19/21 08/17/21 History 1 mg AtorvaSTATin [Lipitor] 20 mg PO QHS 08/18/21 08/19/21 2 Weeks Ago History ~08/05/21 Gabapentin 300 mg PO DAILY 08/18/21 08/19/21 08/17/21 History 1 TAB Warfarin [Coumadin] 2.5 mg PO 4XW 08/18/21 08/19/21 08/10/21 History 1 Warfarin [Coumadin] 5 mg PO 3XW 08/18/21 08/19/2122 History 5 mg lisinopriL [Lisinopril] 10 mg PO DAILY 08/18/21 08/19/21 08/17/21 History 10 mg Citalopram [celeXA] 20 mg PO QDAY 08/19/21 08/19/21 08/17/21 History Insulin Aspart Protam & Aspart 19 units SQ QPM 08/19/21 08/19/21 08/16/21 History [NovoLOG Mix 70-30 Flexpen] Insulin Regular, Human [Novolin R] 6 - 8 units SQ TID 08/19/21 08/19/21 08/17/21 History OXYCODONE hcl [Oxycodone] 15 mg PO TID 08/19/21 08/19/21 08/17/21 History Active Meds: Active Medications Acetaminophen (Acetaminophen 325 Mg Tab) 650 mg PO Q4H PRN PRN Reason: Pain MILD(1-3)/Fever >100.5/RICK Hydrocodone Bitart/Acetaminophen (Hydrocodone/Acetaminophen 5-325 Mg Tab) 1 each PO Q6H PRN PRN Reason: Pain, Mild (1-3) Last Admin: 08/18/21 22:53 Dose: 1 each Albuterol (Albuterol 2.5 Mg/3 Ml Nebu) 2.5 mg IH Q4HRT PRN PRN Reason: Shortness Of Breath Alprazolam (Alprazolam 1 Mg Tab) 1 mg PO TID PRN PRN Reason: Anxiety Last Admin: 08/19/21 10:03 Dose: 1 mg Atorvastatin Calcium (Atorvastatin 20 Mg Tab) 20 mg PO QHS [facility] Last Admin: 08/18/21 22:52 Dose: 20 mg Bisacodyl (Bisacodyl 10 Mg Rect Supp) 10 mg NE QDAY PRN PRN Reason: Constipation unrelieved by MOM Cilostazol (Cilostazol 100 Mg Tab) 100 mg PO BID [facility] Last Admin: 08/19/21 09:59 Dose: 100 mg Clopidogrel Bisulfate (Clopidogrel 75 Mg Tab) 75 mg PO QDAY [facility] Last Admin: 08/19/21 09:59 Dose: 75 mg Docusate Sodium (Docusate Sodium 100 Mg Cap) 100 mg PO BID [facility] Last Admin: 08/19/21 09:59 Dose: 100 mg Gabapentin (Gabapentin 300 Mg Cap) 300 mg PO DAILY [facility] Last Admin: 08/19/21 09:59 Dose: 300 mg Heparin Sodium (Porcine) (Heparin 10,000 Units/10 Ml Vial) 3,200 unit 40 unit/kg (3200 unit) IV Q6H PRN PRN Reason: Anti-Xa Assay<0.1 units/ml Hydromorphone HCl (Hydromorphone 1 Mg/1 Ml Inj) 1 mg IV Q2H PRN PRN Reason: Pain , Severe (7-10) Last Admin: 08/19/21 08:04 Dose: 1 mg Sodium Chloride (Nacl 0.9% 1000 Ml) 1,000 mls @ 100 mls/hr IV DIRECT KRISTIE Heparin Sodium/Sodium Chloride (Heparin/ 0.45% Nacl-25,000 Unit/500 Ml) 25,000 unit in 500 mls @ 20 mls/hr IV TITRATE [facility]; Protocol Last Titration: 08/19/21 04:06 Dose: 1,200 units/hr, 24 mls/hr Lisinopril (Lisinopril 10 Mg Tab) 10 mg PO DAILY [facility] Last Admin: 08/19/21 10:00 Dose: 10 mg Naloxone HCl (Naloxone 0.4 Mg/1 Ml Inj) 0.1 mg IV Q2MIN PRN PRN Reason: Res Rate </= 8 or 02 SAT < 92% Ondansetron HCl (Ondansetron 4 Mg/2 Ml Inj) 4 mg IV Q8H PRN PRN Reason: Nausea And Vomiting Oxycodone/Acetaminophen (Oxycodone /Acetaminophen 5-325mg Tab) 2 tab PO Q4H PRN PRN Reason: Pain, Moderate (4-6) Pantoprazole Sodium (Pantoprazole 40 Mg Tab) 40 mg PO QDAC [facility] Last Admin: 08/19/21 08:05 Dose: Not Given Physical Examination - Physical Exam Narrative exam: Physical Exam: Constitutional: Alert, cooperative. No acute distress Head, Ears, Nose: Normocephalic, atraumatic. External ears, nose normal Eyes: Conjunctivae/corneas clear. No icterus. No ptosis. Neck: Supple, no meningeal signs Oral: dentition fair, no thrush Cardiovascular: S1, S2 normal. Respiratory: Good air entry, clear to auscultation bilaterally GI: Soft, non-tender; bowel sounds normal. No peritoneal signs. Musculoskeletal: Left foot gangrene Skin: No rash or abscess Hem/Lymphatic: No palpable cervical or supraclavicular nodes. No lymphangitis Psych: Mood ok. Affect normal Neurological: Awake, alert, oriented. No gross abnormality - Constitutional Vitals: Vital Signs Temp Pulse Resp BP Pulse Ox 100.6 F H 105 H 18 121/68 97 08/19/21 08:46 08/19/21 08:46 08/19/21 08:46 08/19/21 08:46 08/19/21 08:46 Temperature -Last 24 Hours Temperature 100.6 F Temperature 98.0 F Temperature 98.0 F Temperature 99.7 F Temperature 98.0 F Temperature 97.9 F Results - Labs CBC & Chem 7: 08/19/21 04:22 08/19/21 04:22 Labs: Abnormal lab results 08/18/21 08/18/21 08/19/21 Range/Units 19:48 19:48 00:02 Hgb 9.6 L (11.8-15.2) gm/dl Hct 31.8 L (35.5-45.6) % MCV (84-94) fl MCH (28-32) pg MCHC (32-34) % RDW (13.2-15.2) % [place] % (Auto) (0.0-7.3) % Heparin Anti-Xa Level < 0.10 L (0.3-0.7) U.I./ml BUN 4 L (9-20) mg/dL Creatinine 0.7 L (0.8-1.3) mg/dL Glucose 111 H (75-100) mg/dL 08/19/21 08/19/21 Range/Units 04:22 04:22 Hgb 9.6 L (11.8-15.2) gm/dl Hct 30.4 L (35.5-45.6) % MCV 77 L (84-94) fl MCH 24 L (28-32) pg MCHC 31 L (32-34) % RDW 18.2 H (13.2-15.2) % [place] % (Auto) 9.9 H (0.0-7.3) % Heparin Anti-Xa Level (0.3-0.7) U.I./ml BUN 5 L (9-20) mg/dL Creatinine 0.6 L (0.8-1.3) mg/dL Glucose 146 H (75-100) mg/dL Assessment and Plan Cultures: Blood culture no growth so far A/P: 46-year-old man past medical history CAD, hepatitis, hypertension now with: #Acute sepsis: Present with fevers, tachycardia. Secondary to left foot gangrene. #Left foot gangrene: Due to embolic ischemia with revascularization. He is due to have a BKA after further revascularization. BKA will be curative of infection. #Left lower extremity acute ischemia: As above. Recs: -Started vancomycin and ceftriaxone empirically -We will continue empiric antibiotics for couple days postoperatively, however BKA is curative of infection -Recommend ongoing outpatient wound care and monitoring for stump infection. Thank you for the consult, we will continue to follow. MD José [facility] O: [phone] F: [phone]
[2021-08-19] MEDS ORDERED: BUPIVACAINE/PF (0.25%) 2.5 MG/ML 30 ML VIAL INFILTRATI ONE (13:12)
[2021-08-19] MEDS ORDERED: ONDANSETRON 4 MG/2 ML INJ ONE (13:23)
--- NOTE | 2021-08-19 13:31 | Operative Report ---
Operative Report Operative Report: Date of procedure: 08/19/2021 Pre-operative diagnosis: Peripheral Vascular Disease with Poorly Healing Left Fa sciotomy Incision Post-operative diagnosis: Same Procedure(s): Left Below Knee Amputation Surgeon: Kenrick Florian MD Sales Representative Groceries: None Anesthesia: General Endotracheal Anesthesia EBL: Minimal Counts: Correct Complications: None Condition: Stable Findings: There was some necrotic muscle within the anterior compartment that was debrided however all remaining tissue was healthy and viable. Specimen: Left Leg Sent to Pathology Indication: The patient is a 46-year-old male with history of peripheral vascular disease who presented with acute limb ischemia. He had revascularization that required a fasciotomy of the anterior and lateral compartments afterwards secondary to compartment syndrome. He has been attempting to heal his wounds with a wound VAC however the wound is poorly healed and he is now in need of a below-knee amputation. He has been given the risk, benefits, and alternative procedures and consented to the procedure. Description of Procedure: The patient was brought to the operating room and laid in supine position after general endotracheal anesthesia the patient's left leg was prepped and draped in normal sterile fashion. A tourniquet on the thigh was inflated to 300 mmHg and a transverse incision was then created approximately 3 fingerbreadths below the tibial tuberosity and carried the incision down distally to create a posterior flap, using a 10 blade. Upon creating the incision necrotic muscle within the anterior compartment was noted. Electrocautery was then used to divide the muscle down to the tibia and then down to the fibula. I then used a periosteal elevator to elevate the periosteum on the tibia approximately 2 cm above the incision and then I used an oscillating saw to divide the tibia. I then used a double-action bone cutter to divide the fibula approximately 2 cm above the tibia. I divided the remainder of the soft tissue using electrocautery and passed the specimen off. I identified the neurovascular bundle and ligated both the vein and artery using 0 silk stick ties. I then used 0 silk to perform high ligation of the nerve. Curved Mayos were used to sharply debride the necrotic muscle within the anterior compartment. I achieved hemostasis using electrocautery and direct pressure. I deflated the tourniquet and the wound was evaluated to ensure that there was hemostasis. Once hemostasis was achieved I used a rasps to smooth the tibia and then copiously irrigated the wound with saline. I anesthetized the wound using 0.25% Marcaine. I then closed the wound in 2 layers using 0 Vicryl to reapproximate the fascia and jose c to close the skin. I dressed the wound with Xeroform gauze, fluffs, ABDs, Kerlix, and an Arnie bandage. I placed an appropriately sized knee immobilizer. The patient tolerated the procedure well all sponge needle and instrument counts were the patient was taken to recovery in stable condition.
[2021-08-19] MEDS ORDERED: VANCOMYCIN 1,750 MG in SODIUM CHLORIDE 0.9% 500 ML 500 ML IV ONE ×4 (14:00→19:00)
[2021-08-19] MEDS ORDERED: VANCOMYCIN PHARMACY TO DOSE IV SCH (14:00)
--- NOTE | 2021-08-19 14:02 | Anesthesia Day of Surgery ---
Anesthesia Day of Surgery - Day of Surgery Patient Examined: Yes Patient H&P Reviewed: Yes Patient is NPO: Yes
[2021-08-19] MEDS: cefTRIAXone/NS 2 GM/100 ML 2 GM/100 ML BAG IV SCH (14:50)
[2021-08-19] MEDS: KETOROLAC 30 MG/1 ML INJ IV SCH ×2 (14:51→21:30)
[2021-08-19] MEDS ORDERED: SODIUM CHLORIDE 0.9% 500 ML 500 ML ONE ×3 (15:37→21:31)
[2021-08-19] MEDS: oxyCODONE /ACETAMINOPHEN 5-325MG TAB PO PRN (16:00)
[2021-08-19 16:41] LABS: % Iron Saturation 8.06 %
[2021-08-19] MEDS: HEPARIN/ 0.45% NACL DRIP 25,000 UNIT/500 ML BAG IV SCH (19:55)
[2021-08-20 02:46] LABS: Hematocrit 29.8 % (35.5-45.6); Hemoglobin 9.3 gm/dl (11.8-15.2)
[2021-08-20] MEDS: KETOROLAC 30 MG/1 ML INJ IV SCH ×4 (04:38→22:05)
[2021-08-20] MEDS: HYDROmorphone 1 MG/1 ML INJ IV PRN ×2 (05:20→20:07)
[2021-08-20] MEDS: ALPRAZolam 1 MG TAB PO PRN ×2 (05:21→22:06)
[2021-08-20] MEDS: CLOPIDOGREL 75 MG TAB PO SCH (10:23)
[2021-08-20] MEDS: GABAPENTIN 300 MG CAP PO SCH ×2 (10:23→13:27)
[2021-08-20] MEDS: LISINOPRIL 10 MG TAB PO SCH ×2 (10:23→13:28)
[2021-08-20] MEDS: oxyCODONE /ACETAMINOPHEN 5-325MG TAB PO PRN ×2 (10:31→17:54)
[2021-08-20] MEDS: CILOSTAZOL 100 MG TAB PO SCH ×2 (10:31→22:06)
--- NOTE | 2021-08-20 11:19 | Progress Note ---
Assessment and Plan Patient status post left BKA postop day 1. Patient is anxious and desires to return home as soon as possible. Discussed with patient that he will need appropriate equipment and physical therapy evaluation to determine if he is able to resume his activities of daily living. Subjective Date of service: 08/20/21 Principal diagnosis: Peripheral vascular disease with gangrene of the left lower extremity Interval history: Patient is status post left below the knee amputation. Dressings in place. They will be changed tomorrow. Patient with no significant complaints of pain. His knee immobilizer is in place. Objective - Constitutional Vitals: Vital Signs - 12hr 08/19/21 08/20/21 08/20/21 23:32 03:30 05:50 Temperature 102.5 F H Pulse Rate 127 H Respiratory 18 18 Rate Blood Pressure 150/71 O2 Sat by Pulse 98 93 Oximetry 08/20/21 08/20/21 08:57 10:23 Temperature 98.9 F Pulse Rate 117 H 80 Respiratory 18 Rate Blood Pressure 97/52 110/75 O2 Sat by Pulse 98 Oximetry General appearance: Present: no acute distress - EENT Eyes: EOM intact ENT: hearing intact - Neck Neck: normal ROM - Respiratory Respiratory effort: normal Extremities: abnormal (Left BKA) - Gastrointestinal General gastrointestinal: Present: deferred Rectal Exam: deferred - Genitourinary Male genitourinary: deferred - Psychiatric Psychiatric: appropriate mood/affect, cooperative - Labs CBC & Chem 7: 08/20/21 02:10 08/19/21 04:22 Labs: Abnormal lab results 08/19/21 08/19/21 08/19/21 Range/Units 13:30 15:55 15:55 Hgb (11.8-15.2) gm/dl Hct (35.5-45.6) % Heparin Anti-Xa Level 0.10 L (0.3-0.7) U.I./ml POC Glucose 136 H (70-105) mg/dL Iron 20 L (49-181) ug/dL TIBC 248 L (250-450) mcg/dL 08/19/21 08/20/21 08/20/21 Range/Units 22:15 02:10 02:10 Hgb 9.3 L (11.8-15.2) gm/dl Hct 29.8 L (35.5-45.6) % Heparin Anti-Xa Level < 0.10 L (0.3-0.7) U.I./ml POC Glucose 189 H (70-105) mg/dL Iron (49-181) ug/dL TIBC (250-450) mcg/dL 08/20/21 Range/Units 07:03 Hgb (11.8-15.2) gm/dl Hct (35.5-45.6) % Heparin Anti-Xa Level (0.3-0.7) U.I./ml POC Glucose 213 H (70-105) mg/dL Iron (49-181) ug/dL TIBC (250-450) mcg/dL Medications & Allergies - Medications Allergies/Adverse Reactions: Allergies No Known Allergies Allergy (Verified 08/19/21 09:54) Home Medications: Home Medications Medication Instructions Recorded Confirmed Last Taken Type ALPRAZolam [Xanax TAB] 1 mg PO TID PRN 08/18/21 08/19/21 08/17/21 History 1 mg AtorvaSTATin [Lipitor] 20 mg PO QHS 08/18/21 08/19/21 2 Weeks Ago History ~08/05/21 Gabapentin 300 mg PO DAILY 08/18/21 08/19/21 08/17/21 History 1 TAB Warfarin [Coumadin] 2.5 mg PO 4XW 08/18/21 08/19/21 08/10/21 History 1 Warfarin [Coumadin] 5 mg PO 3XW 08/18/21 08/19/21 08/10/21 History 5 mg lisinopriL [Lisinopril] 10 mg PO DAILY 08/18/21 08/19/21 08/17/21 History 10 mg Citalopram [celeXA] 20 mg PO QDAY 08/19/21 08/19/21 08/17/21 History Insulin Aspart Protam & Aspart 19 units SQ QPM 08/19/21 08/19/21 08/16/21 Hi story [NovoLOG Mix 70-30 Flexpen] Insulin Regular, Human [Novolin R] 6 - 8 units SQ TID 08/19/21 08/19/21 08/17/21 History OXYCODONE hcl [Oxycodone] 15 mg PO TID 08/19/21 08/19/21 08/17/21 History Active Medications: Generic Name Dose Route Start Last Admin Trade Name Freq PRN Reason Stop Dose Admin Acetaminophen 650 mg 08/18/21 14:54 08/20/21 04:39 Acetaminophen 325 Mg Tab PO 650 mg Q4H PRN Administration Pain MILD(1-3)/Fever >100.5/RICK Hydrocodone Bitart/Acetaminophen 1 each 08/18/21 14:54 08/18/21 22:53 Hydrocodone/Acetaminophen 5-325 Mg Tab PO 1 each Q6H PRN Administration Pain, Mild (1-3) Albuterol 2.5 mg 08/18/21 14:54 Albuterol 2.5 Mg/3 Ml Nebu IH Q4HRT PRN Shortness Of Breath Alprazolam 1 mg 08/18/21 15:07 08/20/21 05:21 Alprazolam 1 Mg Tab PO 1 mg TID PRN Administration Anxiety Atorvastatin Calcium 20 mg 08/18/21 22:00 08/19/21 21:19 Atorvastatin 20 Mg Tab PO 20 mg QHS KRISTIE Administration Bisacodyl 10 mg 08/18/21 14:54 Bisacodyl 10 Mg Rect Supp UT QDAY PRN Constipation unrelieved by MOM Cilostazol 100 mg 08/18/21 16:00 08/20/21 10:31 Cilostazol 100 Mg Tab PO 100 mg BID KRISTIE Administration Clopidogrel Bisulfate 75 mg 08/19/21 10:00 08/20/21 10:23 Clopidogrel 75 Mg Tab PO 75 mg QDAY KRISTIE Administration Docusate Sodium 100 mg 08/18/21 15:00 08/19/21 21:19 Docusate Sodium 100 Mg Cap PO 100 mg BID KRISTIE Administration Gabapentin 300 mg 08/18/21 16:00 08/20/21 10:23 Gabapentin 300 Mg Cap PO 300 mg DAILY KRISTIE Administration Heparin Sodium (Porcine) 3,200 unit 08/18/21 14:54 Heparin 10,000 Units/10 Ml Vial 40 unit/kg (3200 unit) IV Q6H PRN Anti-Xa Assay<0.1 units/ml Hydromorphone HCl 1 mg 08/18/21 14:54 08/20/21 05:20 Hydromorphone 1 Mg/1 Ml Inj IV 1 mg Q2H PRN Administration Pain , Severe (7-10) Hydromorphone HCl 0.5 mg 08/19/21 13:31 Hydromorphone 1 Mg/1 Ml Inj IV Q3H PRN Pain , Severe (7-10) Sodium Chloride 1,000 mls @ 100 mls/hr 08/18/21 10:30 Nacl 0.9% 1000 Ml IV DIRECT KRISTIE Heparin Sodium/Sodium Chloride 25,000 unit in 500 mls @ 20 mls/hr 08/18/21 15:00 08/20/21 04:46 Heparin/ 0.45% Nacl-25,000 Unit/500 Ml IV 1,350 units/hr TITRATE KRISTIE 27 mls/hr Titration Protocol 1,000 UNITS/HR Ceftriaxone Sodium 2 gm in 100 mls @ 200 mls/hr 08/19/21 13:00 08/19/21 14:50 Rocephin/Ns 2 Gm/100 Ml IV 200 mls/hr Q24H KRISTIE Administration Protocol Vancomycin HCl 1,250 mg/ 275 mls @ 166.667 mls/hr 08/20/21 07:00 Sodium Chloride IV Q12H KRISTIE Ketorolac Tromethamine 30 mg 08/19/21 14:00 08/20/21 08:00 Ketorolac 30 Mg/1 Ml Inj IV 08/21/21 13:59 Not Given Q6H KRISTIE Lisinopril 10 mg 08/18/21 16:00 08/20/21 10:23 Lisinopril 10 Mg Tab PO 10 mg DAILY [facility] Administration Naloxone HCl 0.1 mg 08/18/21 14:54 Naloxone 0.4 Mg/1 Ml Inj IV Q2MIN PRN Res Rate </= 8 or 02 SAT < 92% Ondansetron HCl 4 mg 08/18/21 14:54 Ondansetron 4 Mg/2 Ml Inj IV Q8H PRN Nausea And Vomiting Oxycodone/Acetaminophen 2 tab 08/18/21 14:54 08/20/21 10:31 Oxycodone /Acetaminophen 5-325mg Tab PO 2 tab Q4H PRN Administration Pain, Moderate (4-6) Pantoprazole Sodium 40 mg 08/18/21 16:00 08/19/21 08:05 Pantoprazole 40 Mg Tab PO Not Given QDAC KRISTIE
--- NOTE | 2021-08-20 13:09 | Progress Note ---
Assessment and Plan Cultures: Blood culture no growth so far A/P: 46-year-old man past medical history CAD, hepatitis, hypertension now with: #Acute sepsis: Present with fevers, tachycardia. Secondary to left foot gangrene. #Left foot gangrene: Due to embolic ischemia with revascularization. He is due to have a BKA after further revascularization. BKA will be curative of infection. #Left lower extremity acute ischemia: As above. Recs: -Started vancomycin and ceftriaxone empirically -We will continue empiric antibiotics for couple days postoperatively, however BKA is curative of infection -Recommend ongoing outpatient wound care and monitoring for stump infection. Thank you for the consult, we will continue to follow. Elise Weeks MD [facility] ([facility] O: [phone] F: [phone] Subjective Date of service: 08/20/21 Principal diagnosis: Peripheral vascular disease with gangrene of the left lower extremity Interval history: Remains febrile to 102.5 with a white count 7.3. Blood cultures no growth so far. Was taken to the OR yesterday for left below-knee amputation. Some necrotic muscle was seen in the anterior compartment. Objective - Exam Narrative Exam: Physical Exam: Constitutional: Alert, cooperative. No acute distress Head, Ears, Nose: Normocephalic, atraumatic. External ears, nose normal Eyes: Conjunctivae/corneas clear. No icterus. No ptosis. Neck: Supple, no meningeal signs Oral: dentition fair, no thrush Cardiovascular: S1, S2 normal. Respiratory: Good air entry, clear to auscultation bilaterally GI: Soft, non-tender; bowel sounds normal. No peritoneal signs. Musculoskeletal: Left foot gangrene Skin: No rash or abscess Hem/Lymphatic: No palpable cervical or supraclavicular nodes. No lymphangitis Psych: Mood ok. Affect normal Neurological: Awake, alert, oriented. No gross abnormality - Constitutional Vitals: Vital Signs Temp Pulse Resp BP Pulse Ox 100.6 F H 112 H 18 131/56 93 08/20/21 12:07 08/20/21 12:07 08/20/21 12:07 08/20/21 12:07 08/20/21 12:07 Temperature -Last 24 Hours Temperature 100.6 F Temperature 98.9 F Temperature 102.5 F Temperature 98.0 F Temperature 98.3 F - Labs CBC & Chem 7: 08/20/21 02:10 08/19/21 04:22 Labs: Abnormal lab results 08/19/21 08/19/21 08/19/21 Range/Units 13:30 15:55 15:55 Hgb (11.8-15.2) gm/dl Hct (35.5-45.6) % Heparin Anti-Xa Level 0.10 L (0.3-0.7) U.I./ml POC Glucose 136 H (70-105) mg/dL Iron 20 L (49-181) ug/dL TIBC 248 L (250-450) mcg/dL 08/19/21 08/20/21 08/20/21 Range/Units 22:15 02:10 02:10 Hgb 9.3 L (11.8-15.2) gm/dl Hct 29.8 L (35.5-45.6) % Heparin Anti-Xa Level < 0.10 L (0.3-0.7) U.I./ml POC Glucose 189 H (70-105) mg/dL Iron (49-181) ug/dL TIBC (250-450) mcg/dL 08/20/21 08/20/21 08/20/21 Range/Units 07:03 10:40 12:09 Hgb (11.8-15.2) gm/dl Hct (35.5-45.6) % Heparin Anti-Xa Level 0.10 L (0.3-0.7) U.I./ml POC Glucose 213 H 149 H (70-105) mg/dL Iron (49-181) ug/dL TIBC (250-450) mcg/dL
[2021-08-20] MEDS: PANTOPRAZOLE 40 MG TAB PO SCH ×2 (13:26→13:27)
[2021-08-20] MEDS: VANCOMYCIN 1,250 MG in SODIUM CHLORIDE 0.9% 250ML 250 ML IV SCH ×2 (13:28→22:06)
[2021-08-20] MEDS: DOCUSATE SODIUM 100 MG CAP PO SCH ×2 (13:29→22:06)
[2021-08-20] MEDS: cefTRIAXone/NS 2 GM/100 ML 2 GM/100 ML BAG IV SCH (13:33)
--- NOTE | 2021-08-20 16:26 | Progress Note ---
Assessment and Plan Assessment and plan: Febrile illness; T-max last 24 hours 602 degrees for night Previous cultures negative to date, new set of cultures If no improvement consult ID -- Critical limb ischemia of left lower extremity with gangrene Current Visit: Yes Status: Acute Vascular evaluated the patient, left BKA 08/19/2021 Continue postop care, pain medications Physical therapy occupational therapy Continue heparin drip per protocol --s/p Left BKA[below-knee amputation Continue postop care, pain medications IV fluids Physical therapy occupational therapy Possible placement --PAD (peripheral artery disease) Current Visit: Yes Status: Chronic Continue cilostazol,s/p Lt.BKA -- HLD (hyperlipidemia) Current Visit: Yes Status: Chronic Continue statins -- Anemia Current Visit: Yes Status: Chronic Anemia work-up -- Anticoagulation /on heparin drip Current Visit: Yes Status: Acute Continue heparin drip per vascular -- Peripheral neuropathy Current Visit: Yes Status: Chronic Continue gabapentin --Generalized anxiety disorder Current Visit: Yes Status: Acute Continue Xanax as needed --DVT prophylaxis Current Visit: Yes Status: Acute On anticoagulation GI prophylaxis --Advance care planning Current Visit: Yes Status: Acute Disease education conducted, care plan discussed, diagnosis discussed, prognosis discussed. Patient is full code. Patient acknowledges understanding and agreement with care plan. +30 minutes. We will closely monitor patient and adjust management as needed Plan of care reviewed with the patient and his nurse Follow physical therapy occupational therapy, chief commercial officer recommendations noted and appreciated DC planning per case management History Interval history: I have seen and examined the patient at the bedside this morning, patient's chart and medication list reviewed 46-year-old male patient with history of peripheral vascular disease, with gangrene of the left lower extremity, status post left BKA on 08/19/2021, POD 1.Patient feels slightly better working with physical therapist, anxious to go home, No new overnight events reported by the nursing vital signs noted Hospitalist Physical - Constitutional Vitals: Temp Pulse Resp BP Pulse Ox 100.6 F H 70 18 131/56 93 08/20/21 12:07 08/20/21 13:28 08/20/21 12:07 08/20/21 12:07 08/20/21 12:07 General appearance: Present: mild distress, well-nourished, other (Anxious) - EENT Eyes: Present: PERRL, EOM intact - Neck Neck: Present: supple, normal ROM - Respiratory Respiratory effort: normal Respiratory: bilateral: diminished, negative: rales, rhonchi, wheezing - Cardiovascular Rhythm: regular Heart Sounds: Present: S1 & S2 - Extremities Extremities: no ischemia, No edema, abnormal (Left BKA, dressing in place) - Abdominal General gastrointestinal: soft, non-tender, non-distended, normal bowel sounds - Integumentary Integumentary: Present: clear, warm - Psychiatric Psychiatric: appropriate mood/affect, cooperative - Neurologic Neurologic: CNII-XII intact, moves all extremities Results - Labs CBC & Chem 7: 08/20/21 02:10 08/19/21 04:22 Labs: Laboratory Last Values WBC 7.3 K/mm3 (4.5-11.0) 08/19/21 04:22 RBC 3.95 M/mm3 (3.65-5.03) 08/19/21 04:22 Hgb 9.3 gm/dl (11.8-15.2) L 08/20/21 02:10 Hct 29.8 % (35.5-45.6) L 08/20/21 02:10 MCV 77 fl (84-94) L 08/19/21 04:22 MCH 24 pg (28-32) L 08/19/21 04:22 MCHC 31 % (32-34) L 08/19/21 04:22 RDW 18.2 % (13.2-15.2) H 08/19/21 04:22 Plt Count 262 K/mm3 (140-440) 08/20/21 02:10 Lymph % (Auto) 25.0 % (13.4-35.0) 08/19/21 04:22 Pitt % (Auto) 9.9 % (0.0-7.3) H 08/19/21 04:22 Eos % (Auto) 0.8 % (0.0-4.3) 08/19/21 04:22 Baso % (Auto) 0.5 % (0.0-1.8) 08/19/21 04:22 Lymph # (Auto) 1.8 K/mm3 (1.2-5.4) 08/19/21 04:22 Pitt # (Auto) 0.7 K/mm3 (0.0-0.8) 08/19/21 04:22 Eos # (Auto) 0.1 K/mm3 (0.0-0.4) 08/19/21 04:22 Baso # (Auto) 0.0 K/mm3 (0.0-0.1) 08/19/21 04:22 Seg Neutrophils % 63.8 % (40.0-70.0) 08/19/21 04:22 Seg Neutrophils # 4.6 K/mm3 (1.8-7.7) 08/19/21 04:22 PT 14.7 Sec. (12.2-14.9) 08/18/21 19:48 INR 1.04 (0.87-1.13) 08/18/21 19:48 APTT 31.4 Sec. (24.2-36.6) 08/18/21 10:17 Heparin Anti-Xa Level 0.10 U.I./ml (0.3-0.7) L 08/20/21 10:40 Sodium 137 mmol/L (137-145) 08/19/21 04:22 Potassium 4.1 mmol/L (3.6-5.0) 08/19/21 04:22 Chloride 98.0 mmol/L (98-107) 08/19/21 04:22 Carbon Dioxide 26 mmol/L (22-30) 08/19/21 04:22 Anion Gap 17 mmol/L 08/19/21 04:22 BUN 5 mg/dL (9-20) L 08/19/21 04:22 Creatinine 0.6 mg/dL (0.8-1.3) L 08/19/21 04:22 Estimated GFR > 60 ml/min 08/19/21 04:22 BUN/Creatinine Ratio 8 % 08/19/21 04:22 Glucose 146 mg/dL (75-100) H 08/19/21 04:22 POC Glucose 149 mg/dL (70-105) H 08/20/21 12:09 Calcium 9.0 mg/dL (8.4-10.2) 08/19/21 04:22 Iron 20 ug/dL (49-181) L 08/19/21 15:55 TIBC 248 mcg/dL (250-450) L 08/19/21 15:55 % Saturation 8.06 % 08/19/21 15:55 Transferrin 215 mg/dl (180-329) 08/19/21 15:55 Microbiology: Microbiology 08/18/21 19:48 Peripheral/Venous Blood Culture - Preliminary NO GROWTH AFTER 24 HOURS 08/18/21 19:48 Peripheral/Venous Blood Culture - Preliminary NO GROWTH AFTER 24 HOURS Gutiererz/IV: Voiding Method Urinal Active Medications - Current Medications Current Medications: Generic Name Dose Route Start Last Admin Trade Name Freq PRN Reason Stop Dose Admin Acetaminophen 650 mg 08/18/21 14:54 08/20/21 04:39 Acetaminophen 325 Mg Tab PO 650 mg Q4H PRN Administration Pain MILD(1-3)/Fever >100.5/RICK Hydrocodone Bitart/Acetaminophen 1 each 08/18/21 14:54 08/18/21 22:53 Hydrocodone/Acetaminophen 5-325 Mg Tab PO 1 each Q6H PRN Administration Pain, Mild (1-3) Albuterol 2.5 mg 08/18/21 14:54 Albuterol 2.5 Mg/3 Ml Nebu IH Q4HRT PRN Shortness Of Breath Alprazolam 1 mg 08/18/21 15:07 08/20/21 05:21 Alprazolam 1 Mg Tab PO 1 mg TID PRN Administration Anxiety Atorvastatin Calcium 20 mg 08/18/21 22:00 08/19/21 21:19 Atorvastatin 20 Mg Tab PO 20 mg QHS KRISTIE Administration Bisacodyl 10 mg 08/18/21 14:54 Bisacodyl 10 Mg Rect Supp MT QDAY PRN Constipation unrelieved by MOM Cilostazol 100 mg 08/18/21 16:00 08/20/21 10:31 Cilostazol 100 Mg Tab PO 100 mg BID KRISTIE Administration Clopidogrel Bisulfate 75 mg 08/19/21 10:00 08/20/21 10:23 Clopidogrel 75 Mg Tab PO 75 mg QDAY KRISTIE Administration Docusate Sodium 100 mg 08/18/21 15:00 08/20/21 13:29 Docusate Sodium 100 Mg Cap PO 100 mg BID KRISTIE Administration Gabapentin 300 mg 08/18/21 16:00 08/20/21 13:27 Gabapentin 300 Mg Cap PO 300 mg DAILY KRISTIE Administration Heparin Sodium (Porcine) 3,200 unit 08/18/21 14:54 Heparin 10,000 Units/10 Ml Vial 40 unit/kg (3200 unit) IV Q6H PRN Anti-Xa Assay<0.1 units/ml Hydromorphone HCl 1 mg 08/18/21 14:54 08/20/21 05:20 Hydromorphone 1 Mg/1 Ml Inj IV 1 mg Q2H PRN Administration Pain , Severe (7-10) Hydromorphone HCl 0.5 mg 08/19/21 13:31 Hydromorphone 1 Mg/1 Ml Inj IV Q3H PRN Pain , Severe (7-10) Sodium Chloride 1,000 mls @ 100 mls/hr 08/18/21 10:30 Nacl 0.9% 1000 Ml IV DIRECT KRISTIE Heparin Sodium/Sodium Chloride 25,000 unit in 500 mls @ 20 mls/hr 08/18/21 15:00 08/20/21 04:46 Heparin/ 0.45% Nacl-25,000 Unit/500 Ml IV 1,350 units/hr TITRATE KRISTIE 27 mls/hr Titration Protocol 1,000 UNITS/HR Ceftriaxone Sodium 2 gm in 100 mls @ 200 mls/hr 08/19/21 13:00 08/20/21 13:33 Rocephin/Ns 2 Gm/100 Ml IV 200 mls/hr Q24H KRISTIE Administration Protocol Vancomycin HCl 1,250 mg/ 275 mls @ 166.667 mls/hr 08/20/21 07:00 08/20/21 13:28 Sodium Chloride IV 166.667 mls/hr Q12H KRISTIE Administration Ketorolac Tromethamine 30 mg 08/19/21 14:00 08/20/21 08:00 Ketorolac 30 Mg/1 Ml Inj IV 08/21/21 13:59 Not Given Q6H KRISTIE Lisinopril 10 mg 08/18/21 16:00 08/20/21 13:28 Lisinopril 10 Mg Tab PO 10 mg DAILY KRISTIE Administration Naloxone HCl 0.1 mg 08/18/21 14:54 Naloxone 0.4 Mg/1 Ml Inj IV Q2MIN PRN Res Rate </= 8 or 02 SAT < 92% Ondansetron HCl 4 mg 08/18/21 14:54 Ondansetron 4 Mg/2 Ml Inj IV Q8H PRN Nausea And Vomiting Oxycodone/Acetaminophen 2 tab 08/18/21 14:54 01/27/22 10:31 Oxycodone /Acetaminophen 5-325mg Tab PO 2 tab Q4H PRN Administration Pain, Moderate (4-6) Pantoprazole Sodium 40 mg 08/18/21 16:00 08/20/21 13:27 Pantoprazole 40 Mg Tab PO 40 mg QDAC KRISTIE Administration
[2021-08-20] MEDS: HEPARIN/ 0.45% NACL DRIP 25,000 UNIT/500 ML BAG IV SCH (16:35)
--- NOTE | 2021-08-21 00:01 | Progress Note ---
Assessment and Plan Assessment and plan: Patient is currently receiving heparin drip per vascular Patient refused just changing this morning by vascular Very agitated, anxious screaming and generalized anxiety Reconsult psych to assist in management Continue antibiotics per ID -- Critical limb ischemia of left lower extremity with gangrene Current Visit: Yes Status: Acute Vascular evaluated the patient, left BKA 08/19/2021 Continue postop care, pain medications Physical therapy occupational therapy Continue heparin drip per protocol --Febrile illness; T-max 102 F yesterday Current Visit: Yes Status: Acute Set of blood cultures, urine cultures currently on antibiotics ID following, on Rocephin and vancomycin Follow results of cultures, continue supportive care --s/p Left BKA[below-knee amputation Current Visit: Yes Status: Acute Continue postop care, pain medications IV fluids Physical therapy occupational therapy Possible placement ID recommended -Started vancomycin and ceftriaxone empirically -We will continue empiric antibiotics for couple days postoperatively, however BKA is curative of infection -Okay to discharge on p.o. doxycycline 100 mg every 12 hours to complete 5 days postoperatively -Recommend ongoing outpatient wound care and monitoring for stump infection. --PAD (peripheral artery disease) Current Visit: Yes Status: Chronic Continue cilostazol,s/p Lt.BKA -- HLD (hyperlipidemia) Current Visit: Yes Status: Chronic Continue statins -- Anemia Current Visit: Yes Status: Chronic Anemia work-up -- Anticoagulation /on heparin drip Current Visit: Yes Status: Acute Continue heparin drip per vascular -- Peripheral neuropathy Current Visit: Yes Status: Chronic Continue gabapentin --Generalized anxiety disorder Current Visit: Yes Status: Acute Continue Xanax as needed Haldol for agitation Consider psych evaluation if needed --DVT prophylaxis Current Visit: Yes Status: Acute On anticoagulation GI prophylaxis --Advance care planning Current Visit: Yes Status: Acute Patient counseled the importance of cooperating and adhering to the treatment plan He was also informed that he is getting appropriate pain medications to take care of his pain Advised Ambien as needed at bedtime for insomnia Patient refused placement, wants to go home with physical therapy Case management processing home PT at discharge. Continue current pain management, PT OT Ambien for insomnia, consider psych evaluation if his anxiety does not improve Continue PT while in hospital Disposition per vascular/surgery DC planning per case management Patient is currently receiving heparin drip per vascular Patient refused surgical dressing change this morning by vascular Very agitated, anxious screaming and generalized anxiety Reconsult psych to assist in management Continue antibiotics per ID Disposition per vascular surgeon/ Patient does not want subacute rehab or placement Possible home with home health when ready Plan of care reviewed with the patient and his nurse Facilities And Grounds Director recommendations noted and appreciated History Interval history: I have seen and examined the patient at the bedside, patient's chart and medications reviewed Patient is screaming at times complaining of severe pain Very agitated at times, does not want to go to rehab wants to go home Vital signs reviewed Hospitalist Physical - Constitutional Vitals: Temp Pulse Resp BP Pulse Ox 98.0 F 98 H 18 109/73 96 08/20/21 23:06 08/20/21 23:06 08/20/21 23:06 08/20/21 23:06 08/20/21 23:06 General appearance: Present: mild distress, well-nourished, other (Anxious) - EENT Eyes: Present: PERRL, EOM intact - Neck Neck: Present: supple, normal ROM - Respiratory Respiratory effort: normal Respiratory: bilateral: diminished, negative: rales, rhonchi, wheezing - Cardiovascular Rhythm: regular Heart Sounds: Present: S1 & S2 - Extremities Extremities: no ischemia, abnormal (Left BKA dressing in place) - Abdominal General gastrointestinal: soft, non-tender, non-distended, normal bowel sounds - Integumentary Integumentary: Present: clear, warm - Psychiatric Psychiatric: appropriate mood/affect, cooperative - Neurologic Neurologic: CNII-XII intact, moves all extremities Results - Labs CBC & Chem 7: 08/20/21 02:10 08/19/21 04:22 Labs: Laboratory Last Values WBC 7.3 K/mm3 (4.5-11.0) 08/19/21 04:22 RBC 3.95 M/mm3 (3.65-5.03) 08/19/21 04:22 Hgb 9.3 gm/dl (11.8-15.2) L 08/20/21 02:10 Hct 29.8 % (35.5-45.6) L 08/20/21 02:10 MCV 77 fl (84-94) L 08/19/21 04:22 MCH 24 pg (28-32) L 08/19/21 04:22 MCHC 31 % (32-34) L 08/19/21 04:22 RDW 18.2 % (13.2-15.2) H 08/19/21 04:22 Plt Count 262 K/mm3 (140-440) 08/20/21 02:10 Lymph % (Auto) 25.0 % (13.4-35.0) 08/19/21 04:22 Callahan % (Auto) 9.9 % (0.0-7.3) H 08/19/21 04:22 Eos % (Auto) 0.8 % (0.0-4.3) 08/19/21 04:22 Baso % (Auto) 0.5 % (0.0-1.8) 08/19/21 04:22 Lymph # (Auto) 1.8 K/mm3 (1.2-5.4) 08/19/21 04:22 Callahan # (Auto) 0.7 K/mm3 (0.0-0.8) 08/19/21 04:22 Eos # (Auto) 0.1 K/mm3 (0.0-0.4) 08/19/21 04:22 Baso # (Auto) 0.0 K/mm3 (0.0-0.1) 08/19/21 04:22 Seg Neutrophils % 63.8 % (40.0-70.0) 08/19/21 04:22 Seg Neutrophils # 4.6 K/mm3 (1.8-7.7) 08/19/21 04:22 PT 14.7 Sec. (12.2-14.9) 08/18/21 19:48 INR 1.04 (0.87-1.13) 08/18/21 19:48 APTT 31.4 Sec. (24.2-36.6) 08/18/21 10:17 Heparin Anti-Xa Level 0.10 U.I./ml (0.3-0.7) L 08/20/21 10:40 Sodium 137 mmol/L (137-145) 08/19/21 04:22 Potassium 4.1 mmol/L (3.6-5.0) 08/19/21 04:22 Chloride 98.0 mmol/L (98-107) 08/19/21 04:22 Carbon Dioxide 26 mmol/L (22-30) 08/19/21 04:22 Anion Gap 17 mmol/L 08/19/21 04:22 BUN 5 mg/dL (9-20) L 08/19/21 04:22 Creatinine 0.6 mg/dL (0.8-1.3) L 08/19/21 04:22 Estimated GFR > 60 ml/min 08/19/21 04:22 BUN/Creatinine Ratio 8 % 08/19/21 04:22 Glucose 146 mg/dL (75-100) H 08/19/21 04:22 POC Glucose 177 mg/dL (70-105) H 08/20/21 21:44 Calcium 9.0 mg/dL (8.4-10.2) 08/19/21 04:22 Iron 20 ug/dL (49-181) L 08/19/21 15:55 TIBC 248 mcg/dL (250-450) L 08/19/21 15:55 % Saturation 8.06 % 08/19/21 15:55 Transferrin 215 mg/dl (180-329) 08/19/21 15:55 Microbiology: Microbiology 08/18/21 19:48 Peripheral/Venous Blood Culture - Preliminary NO GROWTH AFTER 48 HOURS 08/18/21 19:48 Peripheral/Venous Blood Culture - Preliminary NO GROWTH AFTER 48 HOURS Gutierrez/IV: Voiding Method Urinal Active Medications - Current Medications Current Medications: Generic Name Dose Route Start Last Admin Trade Name Freq PRN Reason Stop Dose Admin Acetaminophen 650 mg 08/18/21 14:54 08/20/21 04:39 Acetaminophen 325 Mg Tab PO 650 mg Q4H PRN Administration Pain MILD(1-3)/Fever >100.5/RICK Hydrocodone Bitart/Acetaminophen 1 each 08/18/21 14:54 08/18/21 22:53 Hydrocodone/Acetaminophen 5-325 Mg Tab PO 1 each Q6H PRN Administration Pain, Mild (1-3) Albuterol 2.5 mg 08/18/21 14:54 Albuterol 2.5 Mg/3 Ml Nebu IH Q4HRT PRN Shortness Of Breath Alprazolam 1 mg 08/18/21 15:07 08/20/21 22:06 Alprazolam 1 Mg Tab PO 1 mg TID PRN Administration Anxiety Atorvastatin Calcium 20 mg 08/18/21 22:00 08/20/21 22:06 Atorvastatin 20 Mg Tab PO 20 mg QHS KRISTIE Administration Bisacodyl 10 mg 08/18/21 14:54 Bisacodyl 10 Mg Rect Supp SC QDAY PRN Constipation unrelieved by MOM Cilostazol 100 mg 08/18/21 16:00 08/20/21 22:06 Cilostazol 100 Mg Tab PO 100 mg BID KRISTIE Administration Clopidogrel Bisulfate 75 mg 08/19/21 10:00 08/20/21 10:23 Clopidogrel 75 Mg Tab PO 75 mg QDAY KRISTIE Administration Docusate Sodium 100 mg 08/18/21 15:00 08/20/21 22:06 Docusate Sodium 100 Mg Cap PO 100 mg BID KRISTIE Administration Gabapentin 300 mg 08/18/21 16:00 08/20/21 13:27 Gabapentin 300 Mg Cap PO 300 mg DAILY KRISTIE Administration Heparin Sodium (Porcine) 3,200 unit 08/18/21 14:54 Heparin 10,000 Units/10 Ml Vial 40 unit/kg (3200 unit) IV Q6H PRN Anti-Xa Assay<0.1 units/ml Hydromorphone HCl 1 mg 08/18/21 14:54 08/20/21 20:07 Hydromorphone 1 Mg/1 Ml Inj IV 1 mg Q2H PRN Administration Pain , Severe (7-10) Hydromorphone HCl 0.5 mg 08/19/21 13:31 Hydromorphone 1 Mg/1 Ml Inj IV Q3H PRN Pain , Severe (7-10) Sodium Chloride 1,000 mls @ 100 mls/hr 08/18/21 10:30 Nacl 0.9% 1000 Ml IV DIRECT KRISTIE Heparin Sodium/Sodium Chloride 25,000 unit in 500 mls @ 20 mls/hr 08/18/21 15:00 08/20/21 16:35 Heparin/ 0.45% Nacl-25,000 Unit/500 Ml IV 1,550 units/hr TITRATE KRISTIE 31 mls/hr Administration Protocol 1,000 UNITS/HR Ceftriaxone Sodium 2 gm in 100 mls @ 200 mls/hr 08/19/21 13:00 08/20/21 13:33 Rocephin/Ns 2 Gm/100 Ml IV 200 mls/hr Q24H KRISTIE Administration Protocol Vancomycin HCl 1,250 mg/ 275 mls @ 166.667 mls/hr 08/20/21 07:00 08/20/21 22:06 Sodium Chloride IV 166.667 mls/hr Q12H KRISTIE Administration Ketorolac Tromethamine 30 mg 08/19/21 14:00 08/20/21 22:05 Ketorolac 30 Mg/1 Ml Inj IV 08/21/21 13:59 30 mg Q6H KRISTIE Administration Lisinopril 10 mg 08/18/21 16:00 08/20/21 13:28 Lisinopril 10 Mg Tab PO 10 mg DAILY KRISTIE Administration Naloxone HCl 0.1 mg 08/18/21 14:54 Naloxone 0.4 Mg/1 Ml Inj IV Q2MIN PRN Res Rate </= 8 or 02 SAT < 92% Ondansetron HCl 4 mg 08/18/21 14:54 Ondansetron 4 Mg/2 Ml Inj IV Q8H PRN Nausea And Vomiting Oxycodone/Acetaminophen 2 tab 08/18/21 14:54 08/20/21 17:54 Oxycodone /Acetaminophen 5-325mg Tab PO 2 tab Q4H PRN Administration Pain, Moderate (4-6) Pantoprazole Sodium 40 mg 08/18/21 16:00 08/20/21 13:27 Pantoprazole 40 Mg Tab PO 40 mg QDAC KRISTIE Administration
[2021-08-21] MEDS: KETOROLAC 30 MG/1 ML INJ IV SCH ×2 (01:31→08:22)
[2021-08-21] MEDS: HYDROmorphone 1 MG/1 ML INJ IV PRN ×5 (02:59→20:55)
[2021-08-21] MEDS: ALPRAZolam 1 MG TAB PO PRN ×2 (08:17→23:19)
[2021-08-21] MEDS: PANTOPRAZOLE 40 MG TAB PO SCH (08:17)
[2021-08-21] MEDS: VANCOMYCIN 1,250 MG in SODIUM CHLORIDE 0.9% 250ML 250 ML IV SCH ×2 (08:18→20:54)
[2021-08-21] MEDS: HEPARIN/ 0.45% NACL DRIP 25,000 UNIT/500 ML BAG IV SCH ×2 (10:13→23:09)
[2021-08-21] MEDS: CILOSTAZOL 100 MG TAB PO SCH ×2 (10:13→21:00)
[2021-08-21] MEDS: HYDROcodone/ACETAMINOPHEN 5-325 MG TAB PO PRN (10:13)
[2021-08-21] MEDS: DOCUSATE SODIUM 100 MG CAP PO SCH ×2 (10:14→21:00)
[2021-08-21] MEDS: CLOPIDOGREL 75 MG TAB PO SCH (10:14)
[2021-08-21] MEDS: GABAPENTIN 300 MG CAP PO SCH (10:14)
[2021-08-21] MEDS: LISINOPRIL 10 MG TAB PO SCH (10:14)
[2021-08-21] MEDS ORDERED: HALOPERIDOL 2 MG TAB PO SCH (13:00)
--- NOTE | 2021-08-21 13:09 | Event Note ---
Date: 08/21/21 POD#2 s/p Left BKA. Attempted to change the patient's left BKA stump dressing. Upon entering the room the patient was sitting comfortably but began crying stating that he wanted to go home because he was in too much pain. I asked how would going home help and he stated he had better pain medicine their. I explained that pain control would be best in the hospital and he replied that "he knows, hes just retarded". I began taking the dressing down and he kept screaming at me. I asked him not to scream at me and he told me to leave the ro om and not ever touch him again because I was "treating him like he was retarded" I left the room without completely removing the dressing.
[2021-08-21] MEDS ORDERED: HALOPERIDOL 2 MG TAB PO PRN (13:15)
--- NOTE | 2021-08-21 13:30 | Progress Note ---
Assessment and Plan Cultures: Blood culture no growth so far A/P: 46-year-old man past medical history CAD, hepatitis, hypertension now with: #Acute sepsis: Present with fevers, tachycardia. Secondary to left foot gangrene. #Left foot gangrene: Due to embolic ischemia with revascularization. He is due to have a BKA after further revascularization. BKA will be curative of infection. #Left lower extremity acute ischemia: As above. Recs: -Started vancomycin and ceftriaxone empirically -We will continue empiric antibiotics for couple days postoperatively, however BKA is curative of infection -Okay to discharge on p.o. doxycycline 100 mg every 12 hours to complete 5 days postoperatively -Recommend ongoing outpatient wound care and monitoring for stump infection. Thank you for the consult, we will continue to follow. Elise Weeks MD [facility] ([facility] O: [phone] F: [phone] Subjective Date of service: 08/21/21 Principal diagnosis: Peripheral vascular disease with gangrene of the left lower extremity Interval history: Afebrile overnight, no acute change. Patient complained about lack of water, insulin. After filling his water cup he insinuated I was not smart enough to fill a larger water jug. Patient was uninterested in discussing his care or infectious issues. Objective - Exam Narrative Exam: Physical Exam: Constitutional: Alert, cooperative. No acute distress Head, Ears, Nose: Normocephalic, atraumatic. External ears, nose normal Eyes: Conjunctivae/corneas clear. No icterus. No ptosis. Neck: Supple, no meningeal signs Oral: dentition fair, no thrush Cardiovascular: S1, S2 normal. Respiratory: Good air entry, clear to auscultation bilaterally GI: Soft, non-tender; bowel sounds normal. No peritoneal signs. Musculoskeletal: Left foot gangrene Skin: No rash or abscess Hem/Lymphatic: No palpable cervical or supraclavicular nodes. No lymphangitis Psych: Mood ok. Affect normal Neurological: Awake, alert, oriented. No gross abnormality - Constitutional Vitals: Vital Signs Temp Pulse Resp BP Pulse Ox 99 F 82 18 110/65 98 08/21/21 04:20 08/21/21 04:20 08/21/21 04:20 08/21/21 05:02 08/21/21 09:48 Temperature -Last 24 Hours Temperature 99 F Temperature 98.0 F Temperature 98.4 F Temperature 98.5 F - Labs CBC & Chem 7: 08/20/21 02:10 08/19/21 04:22 Labs: Abnormal lab results 08/20/21 08/20/21 08/20/21 Range/Units 16:34 21:44 23:19 Heparin Anti-Xa Level 0.13 L (0.3-0.7) U.I./ml POC Glucose 164 H 177 H (70-105) mg/dL 08/21/21 Range/Units 10:30 Heparin Anti-Xa Level 0.10 L (0.3-0.7) U.I./ml POC Glucose (70-105) mg/dL
[2021-08-21] MEDS: oxyCODONE /ACETAMINOPHEN 5-325MG TAB PO PRN ×2 (13:47→23:20)
[2021-08-21] MEDS: cefTRIAXone/NS 2 GM/100 ML 2 GM/100 ML BAG IV SCH (13:48)
[2021-08-21] MEDS ORDERED: WARFARIN 5 MG TAB PO SCH (17:00)
[2021-08-21] MEDS: WARFARIN 10 MG TAB PO SCH (17:33)
[2021-08-22] MEDS: HYDROmorphone 1 MG/1 ML INJ IV PRN ×6 (03:02→22:47)
[2021-08-22 06:19] LABS: Hematocrit 25.7 % (35.5-45.6)
[2021-08-22 06:30] LABS: INR 1.05 (0.87-1.13)
[2021-08-22] MEDS: ALPRAZolam 1 MG TAB PO PRN ×2 (09:30→18:19)
[2021-08-22] MEDS: CILOSTAZOL 100 MG TAB PO SCH ×2 (09:36→21:25)
[2021-08-22] MEDS: GABAPENTIN 300 MG CAP PO SCH (09:36)
[2021-08-22] MEDS: LISINOPRIL 10 MG TAB PO SCH (09:38)
[2021-08-22] MEDS: DOCUSATE SODIUM 100 MG CAP PO SCH ×2 (09:38→21:24)
[2021-08-22] MEDS: PANTOPRAZOLE 40 MG TAB PO SCH (09:38)
[2021-08-22] MEDS: CLOPIDOGREL 75 MG TAB PO SCH (09:39)
[2021-08-22] MEDS: VANCOMYCIN 1,250 MG in SODIUM CHLORIDE 0.9% 250ML 250 ML IV SCH ×2 (09:47→18:14)
--- NOTE | 2021-08-22 11:28 | Progress Note ---
Assessment and Plan Assessment and plan: Patient is currently receiving heparin drip per vascular Patient refused just changing this morning by vascular Very agitated, anxious screaming and generalized anxiety Reconsult psych to assist in management Continue antibiotics per ID -- Critical limb ischemia of left lower extremity with gangrene Current Visit: Yes Status: Acute Vascular evaluated the patient, left BKA 08/19/2021 Continue postop care, pain medications Physical therapy occupational therapy Continue heparin drip per protocol --Febrile illness; T-max 102 F yesterday Current Visit: Yes Status: Acute Set of blood cultures, urine cultures currently on antibiotics ID following, on Rocephin and vancomycin Follow results of cultures, continue supportive care --s/p Left BKA[below-knee amputation Current Visit: Yes Status: Acute Continue postop care, pain medications IV fluids Physical therapy occupational therapy Possible placement ID recommended -Started vancomycin and ceftriaxone empirically -We will continue empiric antibiotics for couple days postoperatively, however BKA is curative of infection -Okay to discharge on p.o. doxycycline 100 mg every 12 hours to complete 5 days postoperatively -Recommend ongoing outpatient wound care and monitoring for stump infection. --PAD (peripheral artery disease) Current Visit: Yes Status: Chronic Continue cilostazol,s/p Lt.BKA -- HLD (hyperlipidemia) Current Visit: Yes Status: Chronic Continue statins -- Anemia Current Visit: Yes Status: Chronic Anemia work-up -- Anticoagulation /on heparin drip Current Visit: Yes Status: Acute Continue heparin drip per vascular -- Peripheral neuropathy Current Visit: Yes Status: Chronic Continue gabapentin --Generalized anxiety disorder Current Visit: Yes Status: Acute Continue Xanax as needed Haldol for agitation Consider psych evaluation if needed --DVT prophylaxis Current Visit: Yes Status: Acute On anticoagulation GI prophylaxis --Advance care planning Current Visit: Yes Status: Acute Patient counseled the importance of cooperating and adhering to the treatment plan He was also informed that he is getting appropriate pain medications to take care of his pain Advised Ambien as needed at bedtime for insomnia Patient refused placement, wants to go home with physical therapy Case management processing home PT at discharge. Continue current pain management, PT OT Ambien for insomnia, consider psych evaluation if his anxiety does not improve Continue PT while in hospital Disposition per vascular/surgery DC planning per case management Patient is currently receiving heparin drip per vascular Continue PT, DC planning per case management Plan of care reviewed with the patient and his nurse Milling Machine Operator Gear History Interval history: I have seen and examined the patient at the bedside Patient's chart and medications reviewed Patient complains of some pain at the surgical site Vital signs reviewed Hospitalist Physical - Constitutional Vitals: Temp Pulse Resp BP Pulse Ox 98.3 F 96 H 20 169/89 96 08/22/21 07:35 08/22/21 09:38 08/22/21 07:35 08/22/21 09:38 08/22/21 07:35 General appearance: Present: no acute distress, well-nourished, other (Anxious) - EENT Eyes: Present: PERRL, EOM intact - Neck Neck: Present: supple, normal ROM - Respiratory Respiratory effort: normal Respiratory: bilateral: diminished, negative: rales, rhonchi, wheezing - Cardiovascular Rhythm: regular Heart Sounds: Present: S1 & S2 - Extremities Extremities: no ischemia, No edema - Abdominal General gastrointestinal: soft, non-tender, non-distended, normal bowel sounds - Integumentary Integumentary: Present: clear, warm - Psychiatric Psychiatric: appropriate mood/affect, cooperative - Neurologic Neurologic: moves all extremities Results - Labs CBC & Chem 7: 08/22/21 05:15 08/19/21 04:22 Labs: Laboratory Last Values WBC 7.3 K/mm3 (4.5-11.0) 08/19/21 04:22 RBC 3.95 M/mm3 (3.65-5.03) 08/19/21 04:22 Hgb 8.0 gm/dl (11.8-15.2) L 08/22/21 05:15 Hct 25.7 % (35.5-45.6) L 08/22/21 05:15 MCV 77 fl (84-94) L 08/19/21 04:22 MCH 24 pg (28-32) L 08/19/21 04:22 MCHC 31 % (32-34) L 08/19/21 04:22 RDW 18.2 % (13.2-15.2) H 08/19/21 04:22 Plt Count 231 K/mm3 (140-440) 08/22/21 05:15 Lymph % (Auto) 25.0 % (13.4-35.0) 08/19/21 04:22 Callaway % (Auto) 9.9 % (0.0-7.3) H 08/19/21 04:22 Eos % (Auto) 0.8 % (0.0-4.3) 08/19/21 04:22 Baso % (Auto) 0.5 % (0.0-1.8) 08/19/21 04:22 Lymph # (Auto) 1.8 K/mm3 (1.2-5.4) 08/19/21 04:22 [place]away # (Auto) 0.7 K/mm3 (0.0-0.8) 08/19/21 04:22 Eos # (Auto) 0.1 K/mm3 (0.0-0.4) 08/19/21 04:22 Baso # (Auto) 0.0 K/mm3 (0.0-0.1) 08/19/21 04:22 Seg Neutrophils % 63.8 % (40.0-70.0) 08/19/21 04:22 Seg Neutrophils # 4.6 K/mm3 (1.8-7.7) 08/19/21 04:22 PT 14.9 Sec. (12.2-14.9) 08/22/21 05:15 INR 1.05 (0.87-1.13) 08/22/21 05:15 APTT 31.4 Sec. (24.2-36.6) 08/18/21 10:17 Heparin Anti-Xa Level < 0.10 U.I./ml (0.3-0.7) L 08/22/21 00:45 Sodium 137 mmol/L (137-145) 08/19/21 04:22 Potassium 4.1 mmol/L (3.6-5.0) 08/19/21 04:22 Chloride 98.0 mmol/L (98-107) 08/19/21 04:22 Carbon Dioxide 26 mmol/L (22-30) 08/19/21 04:22 Anion Gap 17 mmol/L 08/19/21 04:22 BUN 5 mg/dL (9-20) L 08/19/21 04:22 Creatinine 0.6 mg/dL (0.8-1.3) L 08/19/21 04:22 Estimated GFR > 60 ml/min 08/19/21 04:22 BUN/Creatinine Ratio 8 % 08/19/21 04:22 Glucose 146 mg/dL (75-100) H 08/19/21 04:22 POC Glucose 177 mg/dL (70-105) H 08/20/21 21:44 Calcium 9.0 mg/dL (8.4-10.2) 08/19/21 04:22 Iron 20 ug/dL (49-181) L 08/19/21 15:55 TIBC 248 mcg/dL (250-450) L 08/19/21 15:55 % Saturation 8.06 % 08/19/21 15:55 Transferrin 215 mg/dl (180-329) 08/19/21 15:55 Microbiology: Microbiology 08/18/21 19:48 Peripheral/Venous Blood Culture - Preliminary NO GROWTH AFTER 72 HOURS 08/18/21 19:48 Peripheral/Venous Blood Culture - Preliminary NO GROWTH AFTER 72 HOURS Gutierrez/IV: Voiding Method Urinal Active Medications - Current Medications Current Medications: Generic Name Dose Route Start Last Admin Trade Name Freq PRN Reason Stop Dose Admin Acetaminophen 650 mg 08/18/21 14:54 08/20/21 04:39 Acetaminophen 325 Mg Tab PO 650 mg Q4H PRN Administration Pain MILD(1-3)/Fever >100.5/RICK Hydrocodone Bitart/Acetaminophen 1 each 08/18/21 14:54 08/21/21 10:13 Hydrocodone/Acetaminophen 5-325 Mg Tab PO 1 each Q6H PRN Administration Pain, Mild (1-3) Albuterol 2.5 mg 08/18/21 14:54 Albuterol 2.5 Mg/3 Ml Nebu IH Q4HRT PRN Shortness Of Breath Alprazolam 1 mg 08/18/21 15:07 08/21/21 23:19 Alprazolam 1 Mg Tab PO 1 mg TID PRN Administration Anxiety Atorvastatin Calcium 20 mg 08/18/21 22:00 08/21/21 21:00 Atorvastatin 20 Mg Tab PO 20 mg QHS KRISTIE Administration Bisacodyl 10 mg 08/18/21 14:54 Bisacodyl 10 Mg Rect Supp [place] QDAY PRN Constipation unrelieved by MOM Cilostazol 100 mg 08/18/21 16:00 08/22/21 09:36 Cilostazol 100 Mg Tab PO 100 mg BID KRISTIE Administration Clopidogrel Bisulfate 75 mg 08/19/21 10:00 08/22/21 09:39 Clopidogrel 75 Mg Tab PO 75 mg QDAY KRISTIE Administration Docusate Sodium 100 mg 08/18/21 15:00 08/22/21 09:38 Docusate Sodium 100 Mg Cap PO 100 mg BID KRISTIE Administration Gabapentin 300 mg 08/18/21 16:00 08/22/21 09:36 Gabapentin 300 Mg Cap PO 300 mg DAILY KRISTIE Administration Haloperidol 2 mg 08/21/21 13:15 08/21/21 13:48 Haloperidol 2 Mg Tab PO 2 mg Q6HR PRN Administration Agitation Heparin Sodium (Porcine) 3,200 unit 08/18/21 14:54 Heparin 10,000 Units/10 Ml Vial 40 unit/kg (3200 unit) IV Q6H PRN Anti-Xa Assay<0.1 units/ml Hydromorphone HCl 1 mg 08/18/21 14:54 08/22/21 09:34 Hydromorphone 1 Mg/1 Ml Inj IV 1 mg Q2H PRN Administration Pain , Severe (7-10) Hydromorphone HCl 0.5 mg 08/19/21 13:31 Hydromorphone 1 Mg/1 Ml Inj IV Q3H PRN Pain , Severe (7-10) Sodium Chloride 1,000 mls @ 100 mls/hr 08/18/21 10:30 Nacl 0.9% 1000 Ml IV DIRECT KRISTIE Heparin Sodium/Sodium Chloride 25,000 unit in 500 mls @ 20 mls/hr 08/18/21 1 5:00 08/22/21 04:46 Heparin/ 0.45% Nacl-25,000 Unit/500 Ml IV 2,150 units/hr TITRATE KRISTIE 43 mls/hr Titration Protocol 1,000 UNITS/HR Ceftriaxone Sodium 2 gm in 100 mls @ 200 mls/hr 08/19/21 13:00 08/21/21 13:48 Rocephin/Ns 2 Gm/100 Ml IV 08/23/21 13:29 200 mls/hr Q24H KRISTIE Administration Protocol Vancomycin HCl 1,250 mg/ 275 mls @ 166.667 mls/hr 08/20/21 07:00 08/22/21 09:47 Sodium Chloride IV 166.667 mls/hr Q12H KRISTIE Administration Lisinopril 10 mg 08/18/21 16:00 01/29/22 09:38 Lisinopril 10 Mg Tab PO 10 mg DAILY KRISTIE Administration Naloxone HCl 0.1 mg 08/18/21 14:54 Naloxone 0.4 Mg/1 Ml Inj IV Q2MIN PRN Res Rate </= 8 or 02 SAT < 92% Ondansetron HCl 4 mg 08/18/21 14:54 Ondansetron 4 Mg/2 Ml Inj IV Q8H PRN Nausea And Vomiting Oxycodone/Acetaminophen 2 tab 08/18/21 14:54 08/21/21 23:20 Oxycodone /Acetaminophen 5-325mg Tab PO 2 tab Q4H PRN Administration Pain, Moderate (4-6) Pantoprazole Sodium 40 mg 08/18/21 16:00 08/22/21 09:38 Pantoprazole 40 Mg Tab PO 40 mg QDAC KRISTIE Administration Warfarin Sodium 10 mg 08/21/21 17:00 08/21/21 17:33 Warfarin 10 Mg Tab PO 10 mg DAILY@1700 KRISTIE Administration Protocol
[2021-08-22] MEDS: cefTRIAXone/NS 2 GM/100 ML 2 GM/100 ML BAG IV SCH (12:48)
[2021-08-22] MEDS: HEPARIN/ 0.45% NACL DRIP 25,000 UNIT/500 ML BAG IV SCH (13:32)
--- NOTE | 2021-08-22 15:29 | Progress Note ---
Assessment and Plan Assessment and plan: --Generalized anxiety disorder Current Visit: Yes Status: Acute Continue Xanax as needed,.Haldol for agitation Psych evaluation pending, supportive care -- Critical limb ischemia of left lower extremity with gangrene Current Visit: Yes Status: Acute Vascular evaluated s/p left BKA 08/19/2021 Continue postop care, pain medications Physical therapy occupational therapy Continue heparin drip per protocol --s/p Left BKA[below-knee amputation Current Visit: Yes Status: Acute Continue postop care, pain medications IV fluids Physical therapy occupational therapy ID recommended -Started vancomycin and ceftriaxone empirically -We will continue empiric antibiotics for couple days postoperatively, however BKA is curative of infection -Okay to discharge on p.o. doxycycline 100 mg every 12 hours to complete 5 days postoperatively -Recommend ongoing outpatient wound care and monitoring for stump infection. --Febrile illness; T-max 102 F yesterday Current Visit: Yes Status: Acute Set of blood cultures, urine cultures ID following, on Rocephin and vancomycin Follow results of cultures adjust antibiotics as needed --PAD (peripheral artery disease) Current Visit: Yes Status: Chronic Continue cilostazol,s/p Lt.BKA -- HLD (hyperlipidemia) Current Visit: Yes Status: Chronic Continue statins -- Anemia Current Visit: Yes Status: Chronic Anemia work-up -- Anticoagulation /on heparin drip Current Visit: Yes Status: Acute Continue heparin drip per vascular -- Peripheral neuropathy Current Visit: Yes Status: Chronic Continue gabapentin --DVT prophylaxis Current Visit: Yes Status: Acute On anticoagulation GI prophylaxis --Advance care planning Current Visit: Yes Status: Acute Patient counseled the importance of cooperating and adhering to the treatment pl an He was also informed he is receiving appropriate amount of pain medications with proper spacing Ambien as needed at bedtime for insomnia Patient refused placement recommended by PT, wants to go home with physical therapy Case management processing home PT at discharge. psych evaluation if his anxiety does not improve Disposition per vascular/surgery Vascular transition from heparin drip to Lovenox and Coumadin, patient may be discharged on Coumadin when target INR 2-3 is reached PT evaluated the patient, patient refused placement, possible home health with home PT on discharge DC planning per case management Brief history; 46-year-old male patient with significant history of peripheral arterial disease left lower extremity acute limb limb ischemia after he was evaluated in [place] was brought to [facility] underwent thrombolysis angioplasty and revascularization of the left lower extremity and had fasciotomies performed during the previous admission., Patient underwent revascularization followed by below-knee amputation 08/19/2021. Patient is very anxious and agitated noncompliant with treatment Was on heparin drip pulled off IV vascular transition to Lovenox and Coumadin, target INR 2-3, PT evaluated, patient refused placement, recommend home with home PT when stable 08/19/21;s/p below-knee amputation 08/23/2021; patient is extremely anxious loud and verbal Psych consulted, continue low-dose Xanax. Vascular transition heparin drip to full dose Lovenox and Coumadin May discharge once INR is therapeutic between 2 and 3 Disposition per vascular History Interval history: I have seen and examined the patient at bedside Patient is very agitated loud verbal and abusive to me and the nurse Patient has episodes of acute stress and anger On low-dose Xanax as needed Psych consulted Hospitalist Physical - Constitutional Vitals: Temp Pulse Resp BP Pulse Ox 98.3 F 104 H 20 154/82 95 08/22/21 12:00 08/22/21 12:00 08/22/21 12:00 08/22/21 12:00 08/22/21 12:00 General appearance: Present: no acute distress, well-nourished, other (Anxious) - EENT Eyes: Present: PERRL, EOM intact - Neck Neck: Present: supple, normal ROM - Respiratory Respiratory effort: normal Respiratory: bilateral: diminished, negative: rales, rhonchi, wheezing - Cardiovascular Rhythm: regular Heart Sounds: Present: S1 & S2 - Extremities Extremities: abnormal (Left BKA, dressing in place) - Abdominal General gastrointestinal: soft, non-tender, non-distended, normal bowel sounds - Integumentary Integumentary: Present: clear, warm - Psychiatric Psychiatric: appropriate mood/affect, agitated, other (Angry loud and verbal) - Neurologic Neurologic: moves all extremities Results - Labs CBC & Chem 7: 08/22/21 05:15 08/19/21 04:22 Labs: Laboratory Last Values WBC 7.3 K/mm3 (4.5-11.0) 08/19/21 04:22 RBC 3.95 M/mm3 (3.65-5.03) 08/19/21 04:22 Hgb 8.0 gm/dl (11.8-15.2) L 08/22/21 05:15 Hct 25.7 % (35.5-45.6) L 08/22/21 05:15 MCV 77 fl (84-94) L 08/19/21 04:22 MCH 24 pg (28-32) L 08/19/21 04:22 MCHC 31 % (32-34) L 08/19/21 04:22 RDW 18.2 % (13.2-15.2) H 08/19/21 04:22 Plt Count 231 K/mm3 (140-440) 08/22/21 05:15 Lymph % (Auto) 25.0 % (13.4-35.0) 08/19/21 04:22 [place] % (Auto) 9.9 % (0.0-7.3) H 08/19/21 04:22 Eos % (Auto) 0.8 % (0.0-4.3) 08/19/21 04:22 Baso % (Auto) 0.5 % (0.0-1.8) 08/19/21 04:22 Lymph # (Auto) 1.8 K/mm3 (1.2-5.4) 08/19/21 04:22 [place] # (Auto) 0.7 K/mm3 (0.0-0.8) 08/19/21 04:22 Eos # (Auto) 0.1 K/mm3 (0.0-0.4) 08/19/21 04:22 Baso # (Auto) 0.0 K/mm3 (0.0-0.1) 08/19/21 04:22 Seg Neutrophils % 63.8 % (40.0-70.0) 08/19/21 04:22 Seg Neutrophils # 4.6 K/mm3 (1.8-7.7) 08/19/21 04:22 PT 14.9 Sec. (12.2-14.9) 08/22/21 05:15 INR 1.05 (0.87-1.13) 08/22/21 05:15 APTT 31.4 Sec. (24.2-36.6) 08/18/21 10:17 Heparin Anti-Xa Level 0.23 U.I./ml (0.3-0.7) L 08/22/21 11:10 Sodium 137 mmol/L (137-145) 08/19/21 04:22 Potassium 4.1 mmol/L (3.6-5.0) 08/19/21 04:22 Chloride 98.0 mmol/L (98-107) 08/19/21 04:22 Carbon Dioxide 26 mmol/L (22-30) 08/19/21 04:22 Anion Gap 17 mmol/L 08/19/21 04:22 BUN 5 mg/dL (9-20) L 08/19/21 04:22 Creatinine 0.6 mg/dL (0.8-1.3) L 08/19/21 04:22 Estimated GFR > 60 ml/min 08/19/21 04:22 BUN/Creatinine Ratio 8 % 08/19/21 04:22 Glucose 146 mg/dL (75-100) H 08/19/21 04:22 POC Glucose 177 mg/dL (70-105) H 08/20/21 21:44 Calcium 9.0 mg/dL (8.4-10.2) 08/19/21 04:22 Iron 20 ug/dL (49-181) L 08/19/21 15:55 TIBC 248 mcg/dL (250-450) L 08/19/21 15:55 % Saturation 8.06 % 08/19/21 15:55 Transferrin 215 mg/dl (180-329) 08/19/21 15:55 Microbiology: Microbiology 08/18/21 19:48 Peripheral/Venous Blood Culture - Preliminary NO GROWTH AFTER 72 HOURS 08/18/21 19:48 Peripheral/Venous Blood Culture - Preliminary NO GROWTH AFTER 72 HOURS Gutierrez/IV: Voiding Method Urinal Active Medications - Current Medications Current Medications: Generic Name Dose Route Start Last Admin Trade Name Freq PRN Reason Stop Dose Admin Acetaminophen 650 mg 08/18/21 14:54 08/20/21 04:39 Acetaminophen 325 Mg Tab PO 650 mg Q4H PRN Administration Pain MILD(1-3)/Fever >100.5/RICK Hydrocodone Bitart/Acetaminophen 1 each 08/18/21 14:54 08/21/21 10:13 Hydrocodone/Acetaminophen 5-325 Mg Tab PO 1 each Q6H PRN Administration Pain, Mild (1-3) Albuterol 2.5 mg 08/18/21 14:54 Albuterol 2.5 Mg/3 Ml Nebu IH Q4HRT PRN Shortness Of Breath Alprazolam 1 mg 08/18/21 15:07 08/21/21 23:19 Alprazolam 1 Mg Tab PO 1 mg TID PRN Administration Anxiety Atorvastatin Calcium 20 mg 08/18/21 22:00 08/21/21 21:00 Atorvastatin 20 Mg Tab PO 20 mg QHS KRISTIE Administration Bisacodyl 10 mg 08/18/21 14:54 Bisacodyl 10 Mg Rect Supp [place] QDAY PRN Constipation unrelieved by MOM Cilostazol 100 mg 08/18/21 16:00 08/22/21 09:36 Cilostazol 100 Mg Tab PO 100 mg BID KRISTIE Administration Clopidogrel Bisulfate 75 mg 08/19/21 10:00 08/22/21 09:39 Clopidogrel 75 Mg Tab PO 75 mg QDAY KRISTIE Administration Docusate Sodium 100 mg 08/18/21 15:00 08/22/21 09:38 Docusate Sodium 100 Mg Cap PO 100 mg BID KRISTIE Administration Gabapentin 300 mg 08/18/21 16:00 08/22/21 09:36 Gabapentin 300 Mg Cap PO 300 mg DAILY KRISTIE Administration Haloperidol 2 mg 08/21/21 13:15 08/21/21 13:48 Haloperidol 2 Mg Tab PO 2 mg Q6HR PRN Administration Agitation Heparin Sodium (Porcine) 3,200 unit 08/18/21 14:54 Heparin 10,000 Units/10 Ml Vial 40 unit/kg (3200 unit) IV Q6H PRN Anti-Xa Assay<0.1 units/ml Hydromorphone HCl 1 mg 08/18/21 14:54 08/22/21 13:20 Hydromorphone 1 Mg/1 Ml Inj IV 1 mg Q2H PRN Administration Pain , Severe (7-10) Hydromorphone HCl 0.5 mg 08/19/21 13:31 Hydromorphone 1 Mg/1 Ml Inj IV Q3H PRN Pain , Severe (7-10) Sodium Chloride 1,000 mls @ 100 mls/hr 08/18/21 10:30 Nacl 0.9% 1000 Ml IV DIRECT KRISTIE Heparin Sodium/Sodium Chloride 25,000 unit in 500 mls @ 20 mls/hr 08/18/21 15:00 08/22/21 13:40 Heparin/ 0.45% Nacl-25,000 Unit/500 Ml IV 2,250 units/hr TITRATE KRISTIE 45 mls/hr Titration Protocol 1,000 UNITS/HR Ceftriaxone Sodium 2 gm in 100 mls @ 200 mls/hr 08/19/21 13:00 08/22/21 12:48 Rocephin/Ns 2 Gm/100 Ml IV 08/23/21 13:29 200 mls/hr Q24H [facility] Administration Protocol Vancomycin HCl 1,250 mg/ 275 mls @ 166.667 mls/hr 08/20/21 07:00 08/22/21 09:47 Sodium Chloride IV 166.667 mls/hr Q12H KRISTIE Administration Lisinopril 10 mg 08/18/21 16:00 08/22/21 09:38 Lisinopril 10 Mg Tab PO 10 mg DAILY KRISTIE Administration Naloxone HCl 0.1 mg 08/18/21 14:54 Naloxone 0.4 Mg/1 Ml Inj IV Q2MIN PRN Res Rate </= 8 or 02 SAT < 92% Ondansetron HCl 4 mg 08/18/21 14:54 Ondansetron 4 Mg/2 Ml Inj IV Q8H PRN Nausea And Vomiting Oxycodone/Acetaminophen 2 tab 08/18/21 14:54 08/21/21 23:20 Oxycodone /Acetaminophen 5-325mg Tab PO 2 tab Q4H PRN Administration Pain, Moderate (4-6) Pantoprazole Sodium 40 mg 08/18/21 16:00 08/22/21 09:38 Pantoprazole 40 Mg Tab PO 40 mg QDAC [facility] Administration Warfarin Sodium 10 mg 08/21/21 17:00 08/21/21 17:33 Warfarin 10 Mg Tab PO 10 mg DAILY@1700 [facility] Administration Protocol
[2021-08-22] MEDS: WARFARIN 10 MG TAB PO SCH (17:04)
[2021-08-22] MEDS: HYDROcodone/ACETAMINOPHEN 5-325 MG TAB PO PRN (18:14)
[2021-08-22] MEDS: oxyCODONE /ACETAMINOPHEN 5-325MG TAB PO PRN (21:25)
[2021-08-23] MEDS: HYDROmorphone 1 MG/1 ML INJ IV PRN ×2 (04:30→08:37)
[2021-08-23] MEDS: PANTOPRAZOLE 40 MG TAB PO SCH (08:59)
--- NOTE | 2021-08-23 10:21 | Consultation ---
History of Present Illness - Reason for Consult Consult date: 08/23/21 Reason for consult: mental health eval - History of Present Psychiatric Illness The patient was seen today. He is a 46y/o male patient who is s/p left BKA. He is a/o x 4. During my evaluation, the patient is upset, but he is cooperative and polite. He is crying and says his is not doing right by him. The patient says "I just had my leg amputated and she wasn't here. Where was she, at work." He says "she can't even bring me food when I ask her." The patient says "I want a divorce." The patient denies suicidal thoughts. He says "no, I've never been suicidal." I ask him if he wanted to harm his or anyone else, "he says no, I'm just upset but I don't want to hurt anybody. I just want my to bring my truck so I can get out of here." The patient says "nobody has a right to hold me here. I have my right mind. I know the date, time, president. I'm fully aware." The patient denies any past psych history. He also denies any psych meds. The patient denies any illicit drug use, or alcohol. He says "I've never had that problem, but my does." He asks me to call his . He is upset and crying and asking her why didn't she bring him food. He is going back and forth with her on the phone. The patient's denies him having any psychiatric history. PAST PSYCHIATRIC HISTORY: Diagnoses: Denies Suicide attempts or Self-harm behavior: Denies Prior psychiatric hospitalizations: Denies Substance Abuse history: Denies Previous psychiatric medications tried: Denies Outpatient treatment: Denies PAST MEDICAL HISTORY: PAD, BKA Family Psychiatric History: None reported or documented SOCIAL HISTORY Marital Status: Living Arrangements: With spouse Employment Status: Disabled Access to guns/weapons: Denies Education: History of Abuse:Denies Legal History: Denies REVIEW OF SYSTEMS Constitutional: Negative for weight loss ENT: Negative for stridor Respiratory: Negative for cough or hemoptysis All other systems reviewed and are negative MENTAL STATUS EXAMINATION General Appearance and Behavior: Age appropriate, good hygiene, wearing appropriate clothes. anxious, cooperative Cooperation: Cooperative Psychomotor Behavior: Psychomotor normal Mood: upset Affect and affective range: congruent with stated mood, tearful Thought Process: goal directed Thought Content: None Speech: Normal tone and pace Suicidal Ideation: Denies Homicidal Ideation: Denies Hallucinations: Denies Delusions: Denies Impulse Control: Limited Insight and Judgment: good insight and fair judgment Memory: good Attention: attentive Orientation: a/o x 4 Assessment (1) Generalized Anxiety Disorder Current Visit: Yes Status: Acute Treatment Plan Agree with home xanax prn Start Vistaril 50mg po BID Medical: per primary Disposition: Do not recommend acute psychiatric inpatient treatment Will sign off. Thanks Case staffed with Dr. Dominguez Medications and Allergies Allergies Allergy/AdvReac Type Severity Reaction Status Date / Time No Known Allergies Allergy Verified 08/19/21 09:54 Home Medications Medication Instructions Recorded Confirmed Last Taken Type ALPRAZolam [Xanax TAB] 1 mg PO TID PRN 08/18/21 08/19/21 08/17/21 History 1 mg AtorvaSTATin [Lipitor] 20 mg PO QHS 08/18/21 08/19/21 2 Weeks Ago History ~08/05/21 Gabapentin 300 mg PO DAILY 08/18/21 08/19/21 08/17/21 History 1 TAB Warfarin [Coumadin] 2.5 mg PO 4XW 08/18/21 08/19/21 08/10/21 History 1 Warfarin [Coumadin] 5 mg PO 3XW 08/18/21 08/19/21 08/10/21 History 5 mg lisinopriL [Lisinopril] 10 mg PO DAILY 08/18/21 08/19/21 08/17/21 History 10 mg Citalopram [celeXA] 20 mg PO QDAY 08/19/21 08/19/21 08/17/21 History Insulin Aspart Protam & Aspart 19 units SQ QPM 08/19/21 08/19/21 08/16/21 History [NovoLOG Mix 70-30 Flexpen] Insulin Regular, Human [Novolin R] 6 - 8 units SQ TID 08/19/21 08/19/21 08/17/21 History OXYCODONE hcl [Oxycodone] 15 mg PO TID 08/19/21 08/19/21 08/17/21 History Active Meds: Active Medications Acetaminophen (Acetaminophen 325 Mg Tab) 650 mg PO Q4H PRN PRN Reason: Pain MILD(1-3)/Fever >100.5/RICK Last Admin: 08/20/21 04:39 Dose: 650 mg Hydrocodone Bitart/Acetaminophen (Hydrocodone/Acetaminophen 5-325 Mg Tab) 1 each PO Q6H PRN PRN Reason: Pain, Mild (1-3) Last Admin: 08/22/21 18:14 Dose: 1 each Albuterol (Albuterol 2.5 Mg/3 Ml Nebu) 2.5 mg IH Q4HRT PRN PRN Reason: Shortness Of Breath Alprazolam (Alprazolam 1 Mg Tab) 1 mg PO TID PRN PRN Reason: Anxiety Last Admin: 08/22/21 18:19 Dose: 1 mg Atorvastatin Calcium (Atorvastatin 20 Mg Tab) 20 mg PO QHS [facility] Last Admin: 08/22/21 21:24 Dose: 20 mg Bisacodyl (Bisacodyl 10 Mg Rect Supp) 10 mg [place] QDAY PRN PRN Reason: Constipation unrelieved by MOM Cilostazol (Cilostazol 100 Mg Tab) 100 mg PO BID [facility] Last Admin: 08/22/21 21:25 Dose: 100 mg Clopidogrel Bisulfate (Clopidogrel 75 Mg Tab) 75 mg PO QDAY [facility] Last Admin: 08/22/21 09:39 Dose: 75 mg Docusate Sodium (Docusate Sodium 100 Mg Cap) 100 mg PO BID [facility] Last Admin: 08/22/21 21:24 Dose: 100 mg Enoxaparin Sodium (Enoxaparin 80 Mg/0.8 Ml Inj) 80 mg SUB-Q Q12HR [facility]; Protocol Gabapentin (Gabapentin 300 Mg Cap) 300 mg PO DAILY [facility] Last Admin: 08/22/21 09:36 Dose: 300 mg Haloperidol (Haloperidol 2 Mg Tab) 2 mg PO Q6HR PRN PRN Reason: Agitation Last Admin: 08/21/21 13:48 Dose: 2 mg Hydromorphone HCl (Hydromorphone 1 Mg/1 Ml Inj) 1 mg IV Q2H PRN PRN Reason: Pain , Severe (7-10) Last Admin: 08/23/21 08:37 Dose: 1 mg Hydromorphone HCl (Hydromorphone 1 Mg/1 Ml Inj) 0.5 mg IV Q3H PRN PRN Reason: Pain , Severe (7-10) Last Admin: 08/23/21 04:30 Dose: 0.5 mg Sodium Chloride (Nacl 0.9% 1000 Ml) 1,000 mls @ 100 mls/hr IV DIRECT [facility] Last Admin: 08/22/21 18:08 Dose: 100 mls/hr Ceftriaxone Sodium (Rocephin/Ns 2 Gm/100 Ml) 2 gm in 100 mls @ 200 mls/hr IV Q24H [facility]; Protocol Stop: 08/23/21 13:29 Last Admin: 08/22/21 12:48 Dose: 200 mls/hr Vancomycin HCl 1,500 mg/ (Sodium Chloride) 530 mls @ 333.333 mls/hr IV Q12H [facility] Lisinopril (Lisinopril 10 Mg Tab) 10 mg PO DAILY [facility] Last Admin: 08/22/21 09:38 Dose: 10 mg Naloxone HCl (Naloxone 0.4 Mg/1 Ml Inj) 0.1 mg IV Q2MIN PRN PRN Reason: Res Rate </= 8 or 02 SAT < 92% Ondansetron HCl (Ondansetron 4 Mg/2 Ml Inj) 4 mg IV Q8H PRN PRN Reason: Nausea And Vomiting Oxycodone/Acetaminophen (Oxycodone /Acetaminophen 5-325mg Tab) 2 tab PO Q4H PRN PRN Reason: Pain, Moderate (4-6) Last Admin: 08/22/21 21:25 Dose: 2 tab Pantoprazole Sodium (Pantoprazole 40 Mg Tab) 40 mg PO QDAC [facility] Last Admin: 08/23/21 08:59 Dose: 40 mg Warfarin Sodium (Warfarin 5 Mg Tab) 5 mg PO DAILY@1700 [facility] Mental Status Exam - Vital signs Last Vital Signs Temp 98.4 F 08/23/21 04:04 Pulse 99 H 08/23/21 04:04 Resp 20 08/23/21 04:04 BP 117/68 08/23/21 04:04 Pulse Ox 96 08/23/21 04:04 Results Result Diagrams: 08/22/21 05:15 08/19/21 04:22 Abnormal lab results 08/22/21 08/22/21 08/23/21 Range/Units 11:10 20:32 02:33 PT 18.6 H (12.2-14.9) Sec. INR 1.40 H (0.87-1.13) Heparin Anti-Xa Level 0.23 L 0.25 L < 0.10 L (0.3-0.7) U.I./ml All other labs normal.
[2021-08-23] MEDS: cefTRIAXone/NS 2 GM/100 ML 2 GM/100 ML BAG IV SCH (12:18)
[2021-08-23] MEDS: ENOXAPARIN 80 MG/0.8 ML INJ SUB-Q SCH ×2 (12:19→21:46)
[2021-08-23] MEDS: CILOSTAZOL 100 MG TAB PO SCH ×2 (12:20→21:46)
[2021-08-23] MEDS: GABAPENTIN 300 MG CAP PO SCH (12:20)
[2021-08-23] MEDS: CLOPIDOGREL 75 MG TAB PO SCH (12:20)
[2021-08-23] MEDS: ALPRAZolam 1 MG TAB PO PRN (12:21)
[2021-08-23] MEDS: LISINOPRIL 10 MG TAB PO SCH (12:21)
[2021-08-23] MEDS: HYDROcodone/ACETAMINOPHEN 5-325 MG TAB PO PRN (12:21)
[2021-08-23] MEDS: DOCUSATE SODIUM 100 MG CAP PO SCH ×2 (12:23→21:47)
[2021-08-23] MEDS: VANCOMYCIN 1,250 MG in SODIUM CHLORIDE 0.9% 250ML 250 ML IV SCH (12:24)
--- NOTE | 2021-08-23 12:41 | Progress Note ---
Assessment and Plan Patient is POD# 4 status post left below-knee amputation. The patient removed his IV overnight which required cessation of his heparin drip. His INR is subtherapeutic so I started him on Lovenox 80 mg SQ twice daily. The patient states he has been able to ambulate and perform daily activities without the use of his left leg for the past 3 to 4 weeks. He does not believe that he would benefit from acute rehab. Physical therapy has recommended home health physical therapy. Once his INR is in the therapeutic range of 2-3 he should be able to be discharged home with home PT. Subjective Date of service: 08/23/21 Principal diagnosis: Peripheral vascular disease with gangrene of the left lower extremity Interval history: The patient complains of some pain in the left stump. He denies any additional pain. He pulled out an IV overnight requiring the nurse to stop his heparin drip. He is apologetic about our last interaction and states he knows he was wrong. He states he is not interested in going to rehab as he has been going th roughout his daily activities for the past 3 to 4 weeks without using his left leg as he was afraid to put any weight on the leg. He states he was able to move throughout his three-story home with the use of crutches as well as supporting himself with his upper body. He has no additional complaints at this time. Objective - Constitutional Vitals: Vital Signs - 12hr 08/23/21 08/23/21 04:04 12:21 Temperature 98.4 F Pulse Rate 99 H Respiratory 20 Rate Blood Pressure 117/68 129/68 O2 Sat by Pulse 96 Oximetry General appearance: Present: no acute distress - Cardiovascular Rhythm: regular Extremities: abnormal (Left BKA incision is clean, dry, and intact) - Labs CBC & Chem 7: 08/22/21 05:15 08/19/21 04:22 Labs: Abnormal lab results 08/22/21 08/23/21 Range/Units 20:32 02:33 PT 18.6 H (12.2-14.9) Sec. INR 1.40 H (0.87-1.13) Heparin Anti-Xa Level 0.25 L < 0.10 L (0.3-0.7) U.I./ml Medications & Allergies - Medications Allergies/Adverse Reactions: Allergies No Known Allergies Allergy (Verified 08/19/21 09:54) Home Medications: Home Medications Medication Instructions Recorded Confirmed Last Taken Type ALPRAZolam [Xanax TAB] 1 mg PO TID PRN 08/18/21 08/19/21 08/17/21 History 1 mg AtorvaSTATin [Lipitor] 20 mg PO QHS 08/18/21 08/19/21 2 Weeks Ago History ~08/05/21 Gabapentin 300 mg PO DAILY 08/18/21 08/19/21 08/17/21 History 1 TAB Warfarin [Coumadin] 2.5 mg PO 4XW 08/18/21 08/19/21 08/10/21 History 1 Warfarin [Coumadin] 5 mg PO 3XW 08/18/21 08/19/21 08/10/21 History 5 mg lisinopriL [Lisinopril] 10 mg PO DAILY 08/18/21 08/19/21 08/17/21 History 10 mg Citalopram [celeXA] 20 mg PO QDAY 08/19/21 08/19/21 08/17/21 History Insulin Aspart Protam & Aspart 19 units SQ QPM 08/19/21 08/19/21 08/16/21 History [NovoLOG Mix 70-30 Flexpen] Insulin Regular, Human [Novolin R] 6 - 8 units SQ TID 08/19/21 08/19/21 08/17/21 History OXYCODONE hcl [Oxycodone] 15 mg PO TID 08/19/21 08/19/21 08/17/21 History Active Medications: Generic Name Dose Route Start Last Admin Trade Name Delaney PRN Reason Stop Dose Admin Acetaminophen 650 mg 08/18/21 14:54 08/20/21 04:39 Acetaminophen 325 Mg Tab PO 650 mg Q4H PRN Administration Pain MILD(1-3)/Fever >100.5/RICK Hydrocodone Bitart/Acetaminophen 1 each 08/18/21 14:54 08/23/21 12:21 Hydrocodone/Acetaminophen 5-325 Mg Tab PO 1 each Q6H PRN Administration Pain, Mild (1-3) Albuterol 2.5 mg 08/18/21 14:54 Albuterol 2.5 Mg/3 Ml Nebu IH Q4HRT PRN Shortness Of Breath Alprazolam 1 mg 08/18/21 15:07 08/23/21 12:21 Alprazolam 1 Mg Tab PO 1 mg TID PRN Administration Anxiety Atorvastatin Calcium 20 mg 08/18/21 22:00 08/22/21 21:24 Atorvastatin 20 Mg Tab PO 20 mg QHS KRISTIE Administration Bisacodyl 10 mg 08/18/21 14:54 Bisacodyl 10 Mg Rect Supp LA QDAY PRN Constipation unrelieved by MOM Cilostazol 100 mg 08/18/21 16:00 08/23/21 12:20 Cilostazol 100 Mg Tab PO 100 mg BID KRISTIE Administration Clopidogrel Bisulfate 75 mg 08/19/21 10:00 08/23/21 12:20 Clopidogrel 75 Mg Tab PO 75 mg QDAY KRISTIE Administration Docusate Sodium 100 mg 08/18/21 15:00 08/23/21 12:23 Docusate Sodium 100 Mg Cap PO Not Given BID KRISTIE Enoxaparin Sodium 80 mg 08/23/21 10:00 08/23/21 12:19 Enoxaparin 80 Mg/0.8 Ml Inj SUB-Q 80 mg Q12HR KRISTIE Administration Protocol Gabapentin 300 mg 08/18/21 16:00 08/23/21 12:20 Gabapentin 300 Mg Cap PO 300 mg DAILY KRISTIE Administration Haloperidol 2 mg 08/21/21 13:15 08/21/21 13:48 Haloperidol 2 Mg Tab PO 2 mg Q6HR PRN Administration Agitation Hydroxyzine Pamoate 50 mg 08/23/21 11:00 Hydroxyzine Pamoate 50 Mg Cap PO BID KRISTIE Sodium Chloride 1,000 mls @ 100 mls/hr 08/18/21 10:30 08/22/21 18:08 Nacl 0.9% 1000 Ml IV 100 mls/hr DIRECT KRISTIE Administration Ceftriaxone Sodium 2 gm in 100 mls @ 200 mls/hr 08/19/21 13:00 08/23/21 12:18 Rocephin/Ns 2 Gm/100 Ml IV 08/23/21 13:29 200 mls/hr Q24H KRISTIE Administration Protocol Vancomycin HCl 1,500 mg/ 530 mls @ 333.333 mls/hr 08/23/21 10:15 Sodium Chloride IV Q12H KRISTIE Lisinopril 10 mg 08/18/21 16:00 08/23/21 12:21 Lisinopril 10 Mg Tab PO 10 mg DAILY KRISTIE Administration Naloxone HCl 0.1 mg 08/18/21 14:54 Naloxone 0.4 Mg/1 Ml Inj IV Q2MIN PRN Res Rate </= 8 or 02 SAT < 92% Ondansetron HCl 4 mg 08/18/21 14:54 Ondansetron 4 Mg/2 Ml Inj IV Q8H PRN Nausea And Vomiting Oxycodone/Acetaminophen 2 tab 08/18/21 14:54 08/22/21 21:25 Oxycodone /Acetaminophen 5-325mg Tab PO 2 tab Q4H PRN Administration Pain, Moderate (4-6) Pantoprazole Sodium 40 mg 08/18/21 16:00 08/23/21 08:59 Pantoprazole 40 Mg Tab PO 40 mg QDAC KRISTIE Administration Warfarin Sodium 5 mg 08/23/21 17:00 Warfarin 5 Mg Tab PO DAILY@1700 [facility]
[2021-08-23] MEDS ORDERED: WARFARIN 5 MG TAB PO SCH (17:00)
[2021-08-23] MEDS: oxyCODONE /ACETAMINOPHEN 5-325MG TAB PO PRN (20:40)
[2021-08-23] MEDS: VANCOMYCIN 1,500 MG in SODIUM CHLORIDE 0.9% 500 ML 500 ML IV SCH ×2 (21:47→21:49)
[2021-08-24] MEDS: HYDROcodone/ACETAMINOPHEN 5-325 MG TAB PO PRN ×2 (01:07→13:21)
[2021-08-24] MEDS: ALPRAZolam 1 MG TAB PO PRN ×2 (01:08→10:02)
[2021-08-24 05:20] LABS: Hematocrit 27.9 % (35.5-45.6); Hemoglobin 8.7 gm/dl (11.8-15.2)
[2021-08-24 05:33] LABS: INR 2.71 (0.87-1.13)
[2021-08-24] MEDS: oxyCODONE /ACETAMINOPHEN 5-325MG TAB PO PRN ×2 (05:45→14:30)
--- NOTE | 2021-08-24 08:36 | Discharge Summary ---
Providers - Providers Date of Admission: 08/18/21 14:54 Attending physician: REYNA PEÑALOZA 08/18/21 14:54 Consult to Physician [CONS] Routine Comment: Consulting Provider: ELBA PACK Physician Instructions: Reason For Exam: left foot infection, set up for BKA 08/19/21 08/19/21 Consult to Case Management [CONS] Routine Services Needed at Discharge: Physical Therapy Notified:: CASE MANAGEMENT Occupational Therapy Evaluate and Treat [CONS] Routine Comment: Reason For Exam: s/p amputation Physical Therapy Evaluation and Treat [CONS] Routine Comment: Reason For Exam: s/p amputation 08/19/21 08:18 Physical Therapy Evaluation and Treat [CONS] Urgent Comment: Reason For Exam: PT to eval and treat 08/19/21 13:31 Consult Acute Rehabilitation [CONS] Routine Consulting Provider: GARETH ENGLISH Physician Instructions: Reason For Exam: eval for acute rehab 08/22/21 11:27 psychiatry consult [Consult to Mental Health] [CONS] Routine Reason For Exam: Generalized anxiety disorder Primary care physician: SMITH RANGEL Hospitalization Reason for admission: pad Condition: Stable Hospital course: --Generalized anxiety disorder Current Visit: Yes Status: Acute Continue Xanax as needed,.Haldol for agitation Psych evaluation pending, supportive care -- Critical limb ischemia of left lower extremity with gangrene Current Visit: Yes Status: Acute Vascular evaluated s/p left BKA 08/19/2021 Continue postop care, pain medications Physical therapy occupational therapy Continue heparin drip per protocol --s/p Left BKA[below-knee amputation Current Visit: Yes Status: Acute Continue postop care, pain medications IV fluids Physical therapy occupational therapy ID recommended -Started vancomycin and ceftriaxone empirically -We will continue empiric antibiotics for couple days postoperatively, however BKA is curative of infection -Okay to discharge on p.o. doxycycline 100 mg every 12 hours to complete 5 days postoperatively -Recommend ongoing outpatient wound care and monitoring for stump infection. --Febrile illness; T-max 102 F yesterday Current Visit: Yes Status: Acute Set of blood cultures, urine cultures ID following, on Rocephin and vancomycin Follow results of cultures adjust antibiotics as needed --PAD (peripheral artery disease) Current Visit: Yes Status: Chronic Continue cilostazol,s/p Lt.BKA -- HLD (hyperlipidemia) Current Visit: Yes Status: Chronic Continue statins -- Anemia Current Visit: Yes Status: Chronic Anemia work-up -- Anticoagulation /on heparin drip Current Visit: Yes Status: Acute Continue heparin drip per vascular -- Peripheral neuropathy Current Visit: Yes Status: Chronic Continue gabapentin --Advance care planning Current Visit: Yes Status: Acute Patient counseled the importance of cooperating and adhering to the treatment plan He was also informed he is receiving appropriate amount of pain medications with proper spacing Ambien as needed at bedtime for insomnia Patient refused placement recommended by PT, wants to go home with physical therapy Case management processing home PT at discharge. psych evaluation if his anxiety does not improve Disposition per vascular/surgery Vascular transition from heparin drip to Lovenox and Coumadin, patient may be discharged on Coumadin when target INR 2-3 is reached PT evaluated the patient, patient refused placement, possible home health with home PT on discharge DC planning per case management Brief history; 46-year-old male patient with significant history of peripheral arterial disease left lower extremity acute limb limb ischemia after he was evaluated in [place] was brought to [facility] underwent thrombolysis angioplasty and revascularization of the left lower extremity and had fasciotomies performed during the previous admission., Patient underwent revascularization followed by below-knee amputatio n 08/19/2021. Patient is very anxious and agitated noncompliant with treatment Was on heparin drip pulled off IV vascular transition to Lovenox and Coumadin, target INR 2-3, PT evaluated, patient refused placement, recommend home with home PT when stable 08/19/21;s/p below-knee amputation 08/23/2021; patient is extremely anxious loud and verbal Psych consulted, continue low-dose Xanax. Vascular transition heparin drip to full dose Lovenox and Coumadin May discharge once INR is therapeutic between 2 and 3 Disposition per vascular 08/24: INR improved, will discharge on coumadin and extensive education about compliance complete antibiotics Disposition: HOME HEALTH CARE SERVICE Final Discharge Diagnosis (Prints w/discharge instructions): Critical limb ischemia of left lower extremity with gangrene Time spent for discharge: 35 mins Core Measure Documentation - Palliative Care Palliative Care/ Comfort Measures: Not Applicable - Core Measures Any of the following diagnoses?: none Exam - Physical Exam Narrative exam: General appearance: Present: no acute distress, well-nourished, other (Anxious) - EENT Eyes: Present: PERRL, EOM intact - Neck Neck: Present: supple, normal ROM - Respiratory Respiratory effort: normal Respiratory: bilateral: diminished, negative: rales, rhonchi, wheezing - Cardiovascular Rhythm: regular Heart Sounds: Present: S1 & S2 - Extremities Extremities: abnormal (Left BKA, dressing in place) - Abdominal General gastrointestinal: soft, non-tender, non-distended, normal bowel sounds - Integumentary Integumentary: Present: clear, warm - Psychiatric Psychiatric: appropriate mood/affect, agitated, other (Angry loud and verbal) - Neurologic Neurologic: moves all extremities - Constitutional Vitals: Temp Pulse Resp BP Pulse Ox 97.8 F 106 H 16 133/72 97 08/24/21 04:00 08/24/21 04:00 08/24/21 04:00 08/24/21 04:00 08/24/21 04:00 Plan Activity: advance as tolerated, fall precautions Diet: diabetic Special Instructions: record daily weights, record daily BP diary, smoking cessation, physical therapy, occupational therapy Care Plan Goals: must get INR checked in 2 days and follow Doctors recommendation for adjusting coumadin dose based on INR reading Follow up with: SMITH RANGEL MD [Primary Care Provider] - 7 Days YA BALDERAS MD [Staff Physician] - 7 Days JOANNE CASTELLANO MD [Staff Physician] - 7 Days Prescriptions: Docusate Sodium [Colace CAP] 100 mg PO BID #30 capsule Warfarin [Coumadin] 5 mg PO DAILY #30 tab OXYCODONE hcl [Oxycodone] 15 mg PO TID PRN #14 tab PRN Reason: Pain, Moderate (4-6) Clopidogrel [Plavix] 75 mg PO QDAY #30 tablet cilostazoL [Pletal] 100 mg PO BID #60 tablet Pantoprazole [Protonix TAB] 40 mg PO QDAC #30 tablet DOXYCYCLINE Hyclate [Vibramycin CAP] 100 mg PO Q12HR #10 capsule hydrOXYzine PAMOATE [Vistaril] 50 mg PO BID #60 capsule
[2021-08-24] MEDS: CILOSTAZOL 100 MG TAB PO SCH (10:02)
[2021-08-24] MEDS: PANTOPRAZOLE 40 MG TAB PO SCH (10:02)
[2021-08-24] MEDS: CLOPIDOGREL 75 MG TAB PO SCH (10:02)
[2021-08-24] MEDS: DOCUSATE SODIUM 100 MG CAP PO SCH (10:02)
[2021-08-24] MEDS: GABAPENTIN 300 MG CAP PO SCH (10:02)
[2021-08-24] MEDS: LISINOPRIL 10 MG TAB PO SCH (10:02)
[2021-08-24 11:49] VITALS: BP 133/67
--- NOTE | 2021-08-24 13:55 | Progress Note ---
Assessment and Plan Cultures: Blood culture no growth so far A/P: 46-year-old man past medical history CAD, hepatitis, hypertension now with: #Acute sepsis: Present with fevers, tachycardia. Secondary to left foot gangrene. #Left foot gangrene: Due to embolic ischemia with revascularization. He is due to have a BKA after further revascularization. BKA will be curative of infection. #Left lower extremity acute ischemia: As above. Recs: -Started vancomycin and ceftriaxone empirically -Okay to discharge on p.o. doxycycline 100 mg every 12 hours to complete 5 days postoperatively -Recommend ongoing outpatient wound care and monitoring for stump infection. Thank you for the consult, we will continue to follow. Elise Weeks MD [facility] O: [phone] F: [phone] Subjective Date of service: 08/24/21 Principal diagnosis: Peripheral vascular disease with gangrene of the left lower extremity Interval history: Afebrile, no acute change. Objective - Exam Narrative Exam: Physical Exam: Constitutional: Alert, cooperative. No acute distress Head, Ears, Nose: Normocephalic, atraumatic. External ears, nose normal Eyes: Conjunctivae/corneas clear. No icterus. No ptosis. Neck: Supple, no meningeal signs Oral: dentition fair, no thrush Cardiovascular: S1, S2 normal. Respiratory: Good air entry, clear to auscultation bilaterally GI: Soft, non-tender; bowel sounds normal. No peritoneal signs. Musculoskeletal: Left foot gangrene Skin: No rash or abscess Hem/Lymphatic: No palpable cervical or supraclavicular nodes. No lymphangitis Psych: Mood ok. Affect normal Neurological: Awake, alert, oriented. No gross abnormality - Constitutional Vitals: Vital Signs Temp Pulse Resp BP Pulse Ox 97.2 F L 87 20 133/67 95 08/24/21 11:00 08/24/21 11:00 08/24/21 11:00 08/24/21 11:00 08/24/21 11:07 Temperature -Last 24 Hours Temperature 97.2 F Temperature 97.9 F Temperature 97.8 F Temperature 98.0 F Temperature 98.7 F Temperature 98.2 F - Labs CBC & Chem 7: 08/24/21 04:11 01/26/22 04:22 Labs: Abnormal lab results 08/24/21 08/24/21 Range/Units 04:11 04:11 Hgb 8.7 L (11.8-15.2) gm/dl Hct 27.9 L (35.5-45.6) % PT 31.0 H (12.2-14.9) Sec. INR 2.71 H (0.87-1.13)
== END 2021-08-24 15:45 | disposition home health service (06) | DRG 854 ==
LOC: CATHLABREC 09:42 → 4A 14:54 → MERGE 14:54 → 4A 16:28
PROVIDERS: ADMIT Internal Medicine; ATTEND Radiology Diagnostic Radiology
PROC: 047L3ZZ Dilation of Left Femoral Artery, Percutaneous Approach (ICD-10-PCS; principal; 2021-08-18)
PROC: B4101ZZ Fluoroscopy of Abdominal Aorta using Low Osmolar Contrast (ICD-10-PCS; 2021-08-18)
PROC: B41G1ZZ Fluoroscopy of Left Lower Extremity Arteries using Low Osmolar Contrast (ICD-10-PCS; 2021-08-18)
PROC: 0Y6G0ZZ Detachment at Left Knee Region, Open Approach (ICD-10-PCS; 2021-08-19)
DX: A41.9 Sepsis, unspecified organism (principal); I70.262 Atherosclerosis of native arteries of extremities with gangrene, left leg; E78.5 Hyperlipidemia, unspecified; I10 Essential (primary) hypertension; I25.10 Atherosclerotic heart disease of native coronary artery without angina pectoris; I25.2 Old myocardial infarction; D64.9 Anemia, unspecified; G62.9 Polyneuropathy, unspecified; F41.1 Generalized anxiety disorder; Z20.822 Contact with and (suspected) exposure to COVID-19
CPT/HCPCS: 36415; 37224; 71045; 75625; 75710; 76937; 80048; 80202; 82962; 83550; 85014; 85018; 85025; 85027; 85049; 85520; 85610; 85730; 87040; 88307; 88311; 93005; 93010; 96374; G0378; J3490; J7120; Q0162; C1725; C1760; C1769; C1887; C2623; J0690; J0696; J1170; J1644; J1650; J1885; J2060; J2250; J2370; J2405; J2704; J3010; J3370; J7030; J7040; J7050; Q0177; Q9967

== ENCOUNTER 2021-11-13 09:02 | Outpatient (CLI) | payer BC ==
[2021-11-13] MEDS ORDERED: LIDOCAINE (4%) 40 MG/ML TOPICAL SOLN 50 ML BOTTLE TP ONE (11:38)
== END 2021-11-13 09:03 | disposition home or self-care (01) ==
LOC: WOUND 09:02
PROVIDERS: ATTEND Surgery
DX: T87.89 Other complications of amputation stump (principal); L02.416 Cutaneous abscess of left lower limb; E11.9 Type 2 diabetes mellitus without complications; F32.9 Major depressive disorder, single episode, unspecified; F41.9 Anxiety disorder, unspecified; F17.290 Nicotine dependence, other tobacco product, uncomplicated; Z79.84 Long term (current) use of oral hypoglycemic drugs; Z79.01 Long term (current) use of anticoagulants; Y83.5 Amputation of limb(s) as the cause of abnormal reaction of the patient, or of later complication, without mention of misadventure at the time of the procedure
CPT/HCPCS: 99214; G0463

== ENCOUNTER 2021-11-20 08:58 | Outpatient (CLI) | payer BC ==
[2021-11-20] MEDS ORDERED: LIDOCAINE (4%) 40 MG/ML TOPICAL SOLN 50 ML BOTTLE TP ONE (09:08)
[2021-11-20] MEDS ORDERED: SILVER NITRATE APPLICATOR 1 EA TP SCH (10:00)
== END 2021-11-20 08:59 | disposition home or self-care (01) ==
LOC: WOUND 08:58
PROVIDERS: ATTEND Surgery
DX: T87.89 Other complications of amputation stump (principal); L02.416 Cutaneous abscess of left lower limb; E11.9 Type 2 diabetes mellitus without complications; F17.290 Nicotine dependence, other tobacco product, uncomplicated; Z79.84 Long term (current) use of oral hypoglycemic drugs; Z79.01 Long term (current) use of anticoagulants; Y83.5 Amputation of limb(s) as the cause of abnormal reaction of the patient, or of later complication, without mention of misadventure at the time of the procedure

== ENCOUNTER 2021-11-27 13:08 | Outpatient (CLI) | payer BC ==
[2021-11-27] MEDS ORDERED: LIDOCAINE (4%) 40 MG/ML TOPICAL SOLN 50 ML BOTTLE TP ONE (13:26)
== END 2021-11-27 13:09 | disposition home or self-care (01) ==
LOC: WOUND 13:08
PROVIDERS: ATTEND Surgery
DX: T87.89 Other complications of amputation stump (principal); L02.416 Cutaneous abscess of left lower limb; E11.9 Type 2 diabetes mellitus without complications; F17.290 Nicotine dependence, other tobacco product, uncomplicated; Z79.84 Long term (current) use of oral hypoglycemic drugs; Z79.01 Long term (current) use of anticoagulants; Y83.5 Amputation of limb(s) as the cause of abnormal reaction of the patient, or of later complication, without mention of misadventure at the time of the procedure

== ENCOUNTER 2021-12-11 13:18 | Outpatient (CLI) | payer BC ==
[2021-12-11] MEDS ORDERED: LIDOCAINE (4%) 40 MG/ML TOPICAL SOLN 50 ML BOTTLE TP ONE (15:00)
== END 2021-12-11 13:19 | disposition home or self-care (01) ==
LOC: WOUND 13:18
PROVIDERS: ATTEND Surgery
DX: T87.89 Other complications of amputation stump (principal); L02.416 Cutaneous abscess of left lower limb; E11.9 Type 2 diabetes mellitus without complications; F17.290 Nicotine dependence, other tobacco product, uncomplicated; Z79.84 Long term (current) use of oral hypoglycemic drugs; Z79.01 Long term (current) use of anticoagulants; Y83.5 Amputation of limb(s) as the cause of abnormal reaction of the patient, or of later complication, without mention of misadventure at the time of the procedure
CPT/HCPCS: 99212; G0463

== ENCOUNTER 2021-12-25 12:41 | Outpatient (CLI) | payer BC ==
[2021-12-25] MEDS ORDERED: LIDOCAINE (4%) 40 MG/ML TOPICAL SOLN 50 ML BOTTLE TP ONE (12:52)
== END 2021-12-25 12:42 | disposition home or self-care (01) ==
LOC: WOUND 12:41
PROVIDERS: ATTEND Surgery
DX: T87.89 Other complications of amputation stump (principal); L02.416 Cutaneous abscess of left lower limb; E11.9 Type 2 diabetes mellitus without complications; F17.290 Nicotine dependence, other tobacco product, uncomplicated; Z79.84 Long term (current) use of oral hypoglycemic drugs; Z79.01 Long term (current) use of anticoagulants; Y83.5 Amputation of limb(s) as the cause of abnormal reaction of the patient, or of later complication, without mention of misadventure at the time of the procedure

== ENCOUNTER 2022-01-15 14:56 | Outpatient (CLI) | payer BC ==
[2022-01-15] MEDS ORDERED: LIDOCAINE (4%) 40 MG/ML TOPICAL SOLN 50 ML BOTTLE TP SCH (16:30)
== END 2022-01-15 14:57 | disposition home or self-care (01) ==
LOC: WOUND 14:56
PROVIDERS: ATTEND Surgery
DX: T87.89 Other complications of amputation stump (principal); L02.416 Cutaneous abscess of left lower limb; E11.9 Type 2 diabetes mellitus without complications; F17.290 Nicotine dependence, other tobacco product, uncomplicated; Z79.84 Long term (current) use of oral hypoglycemic drugs; Z79.01 Long term (current) use of anticoagulants; Y83.5 Amputation of limb(s) as the cause of abnormal reaction of the patient, or of later complication, without mention of misadventure at the time of the procedure